=== PATIENT | female | born 1945 | race Caucasian/White ===

== ENCOUNTER 2021-10-05 02:06 | Emergency (ER) | payer MEDICARE, OTHER, SELFPAY ==
[2021-10-05] VITALS (19 sets, daily range): BP systolic 118–190; BP diastolic 64–108; PULSE 68–87; RESP 12–21; TEMP 36.2; O2SAT 93–100; BMI 33.1
--- NOTE | 2021-10-05 02:37 | ED.GENADULT ---
HPI - General Adult General Date Seen: 10/05/21 Chief complaint: Abdominal Pain Stated complaint: Abdominal pain Time Seen by Provider: 10/05/21 02:20 Source: patient History of Present Illness HPI narrative: Patient is a 75-year-old woman who says that she went to bed around 11:00 a.m., was trying to fall asleep when she developed sudden onset of sharp constant right lower abdominal pain with radiation to the right flank. She describes this as severe, associated with nausea and ?belching acid?, but no vomiting. She does describe a history of a large gastric ulcer number of years ago in [place], but has not had any epigastric pain. She denies any current black or bloody stools. Of note, she is Mandaen, bled down to hemoglobin of 5 with that past GI bleed and was given iron infusions for recovery. Has not had diarrhea. Has not had fevers or chills, no other urinary symptoms. Remote history of kidney stones. Status post cholecystectomy and appendectomy. Did not try any medications at home. No chest pain or difficulty breathing. Remote history of quadruple bypass. She does not smoke or drink. Her brought her in [facility]. Related Data Home Medications Medication Instructions Recorded Confirmed amlodipine 5 mg tablet mg 10/05/21 diazepam 2 mg tablet mg 10/05/21 dulaglutide 4.5 mg/0.5 mL mg subcut 10/05/21 subcutaneous pen injector (Trulicity) empagliflozin 25 mg tablet mg 10/05/21 (Jardiance) insulin glargine 100 unit/mL (3 unit subcut 10/05/21 mL) subcutaneous pen (Lantus Solostar U-100 Insulin) losartan 100 mg tablet mg 10/05/21 metoprolol succinate 25 mg mg PO 10/05/21 tablet,extended release 24 hr nitroglycerin 0.4 mg sublingual mg 10/05/21 tablet omeprazole 40 mg capsule,delayed mg 10/05/21 release rivaroxaban 15 mg tablet (Xarelto) mg 10/05/21 rosuvastatin 20 mg tablet mg 10/05/21 venlafaxine 150 mg mg PO 10/05/21 capsule,extended release 24 hr Allergies Allergy/AdvReac Type Severity Reaction Status Date / Time No Known Drug Allergies Allergy Verified 10/05/21 05:06 Review of Systems Status of ROS: Reports: 10 or more systems reviewed and unremarkable except as noted in History and below [facility] Social History Smoking Status: Never smoker Do you use any of these nicotine containing products: None Second hand tobacco smoke exposure: No How often do you have a drink containing alcohol: monthly or less How many standard drinks containing alcohol do you have on a typical day: 1 or 2 How often do you have six or more drinks on one occasion: Never AUDIT-C Alcohol total score: 1 Non-prescribed substance use: denies use Exam Narrative: Exam Narrative: Vital signs as noted above. In general, an alert, nontoxic elderly woman. She looks uncomfortable. Head: Normocephalic, atraumatic. Eyes: Pupils are equal reactive. Extraocular movements are full. Conjunctivae are normal. ENT: Mucous membranes are moist. Throat is normal. Neck: Supple without lymphadenopathy. Heart: Regular rate and rhythm. No murmur or rub. Lungs: Clear bilaterally. No increased work of breathing, crackles or wheezes. No CVA tenderness. Abdomen: Soft nondistended. Mild right sided tenderness without rebound guarding or rigidity. No significant epigastric tenderness. Extremities: Well perfused. Pulses intact. Neurologic: Patient is alert and oriented to person and place. Speech is fluent. Face is symmetric. Moves all extremities equally. Affect: Normal. Skin: Warm and dry. Well perfused. Const: Vital Signs, click to edit/add: Vital Signs - 24 hr 10/05/21 02:11 10/05/21 02:57 10/05/21 03:30 Temperature 97.1 F L Pulse Rate [Left P ulse Oximeter] 84 68 73 Respiratory Rate Blood Pressure [Le ft Forearm] Blood Pressure [Ri ght Forearm] Blood Pressure [Ri ght Upper Arm] 190/87 H 174/88 H Pulse Oximetry 96 98 95 Oxygen Delivery Me thod Room Air Room Air Room Air 10/05/21 03:58 10/05/21 02:10 10/05/21 04:38 Temperature Pulse Rate [Left P ulse Oximeter] 78 80 Respiratory Rate Blood Pressure [Le ft Forearm] Blood Pressure [Ri ght Forearm] Blood Pressure [Ri ght Upper Arm] 190/87 H Pulse Oximetry 97 94 Oxygen Delivery Me thod Room Air Room Air 10/05/21 04:41 10/05/21 05:15 10/05/21 06:30 Temperature Pulse Rate [Left P ulse Oximeter] 76 83 Respiratory Rate 16 18 Blood Pressure [Le ft Forearm] Blood Pressure [Ri ght Forearm] 143/85 H Blood Pressure [Ri ght Upper Arm] 139/64 Pulse Oximetry 93 99 Oxygen Delivery Me thod Room Air Nasal Cannula 10/05/21 06:10 10/05/21 05:30 10/05/21 05:10 Temperature Pulse Rate [Left P ulse Oximeter] Respiratory Rate Blood Pressure [Le ft Forearm] 149/89 H 163/75 H Blood Pressure [Ri ght Forearm] 171/108 H Blood Pressure [Ri ght Upper Arm] Pulse Oximetry 97 94 Oxygen Delivery Me thod Nasal Cannula Room Air 10/05/21 06:45 10/05/21 08:00 10/05/21 07:15 Temperature Pulse Rate [Left P ulse Oximeter] 76 83 80 Respiratory Rate 12 16 18 Blood Pressure [Le ft Forearm] Blood Pressure [Ri ght Forearm] 150/92 H 149/94 H 156/87 H Blood Pressure [Ri ght Upper Arm] Pulse Oximetry 98 98 99 Oxygen Delivery Me thod Room Air Nasal Cannula Nasal Cannula 10/05/21 07:30 10/05/21 07:45 Temperature Pulse Rate [Left P ulse Oximeter] 87 87 Respiratory Rate 17 18 Blood Pressure [Le ft Forearm] Blood Pressure [Ri ght Forearm] 149/80 H 152/85 H Blood Pressure [Ri ght Upper Arm] Pulse Oximetry 97 100 Oxygen Delivery Me thod Nasal Cannula Nasal Cannula Course Course Hospital Course: We will place an IV here, give her some morphine and Zofran given her history of GI bleeding. I am ordering some labs to start, going to hold off on CT scanning to decide whether not to give her contrast. She does say that she has a history of some renal insufficiency and that may limit her use of contrast regardless. Diagnostic considerations include kidney stone, pyelonephritis, aortic dissection, pancreatitis, colitis, diverticulitis, bowel obstruction, mesenteric ischemia, CO. Labs were overall normal. White blood cell count was 7.3, lactate near normal at 2. Hemoglobin was 13, platelets [id number]. Metabolic panel was normal, aside from a blood sugar of 243, and creatinine was 0.8. LFTs notable only for an ALT of 40. Troponin was 0.03. UA was notable for 3+ glucose, trace intact blood but 0-2 red cells and 0-2 white cells. Given unremarkable blood work, I elected to do a noncontrast CT scan, thinking that perhaps this was related to kidney stone. Urinalysis was not available at that time. She went on to have a CT scan which by my review did not show hydronephrosis or ureteral stone. She did have abnormalities in the right upper quadrant of indeterminate nature. This was read by Radiology as showing hemorrhage which they felt was likely coming from the right adrenal gland. I reviewed this with our general surgeon. I did give the patient Transexemic Acid, which was in keeping with her Mandaen beliefs. I did talk with her about reversal of the Xarelto, which would involve using something like Kcentra, which is what we have available here. This involves factor replacement, which is more complicated. She is reviewing that with other denominational leaders. I do not yet have approval for that from her. Per our surgeons recommendation, I did repeat the CT scan with contrast. This is read by Radiology as showing active hemorrhage, felt to be coming from the adrenal artery, and he notes that the hemorrhage is larger, now at 10 cm. It is still contained within the retroperitoneal fat, but he notes significant enlargement of the hemorrhage. I have at this point made multiple calls to all [facility]. There are no available beds at [facility], [facility], [facility], and I have not received any call back from [facility] so I assume that they likewise do not have beds. At this time, patient is still hemodynamically stable, repeat hemoglobin is pending. I am however, very concerned with ongoing arterial bleeding, anticoagulation and my inability to provide really any kind of stabilization. I will continue to look for options. Significant delays in finding a place to send this patient. I had a pages out to several places including [facility] and [facility] in [place], I did not hear back from anyone in a timely manner. I had called [facility] back to ask if I could speak to a surgeon about getting her down there for Interventional Radiology even without bed availability, but there was misinterpretation about who I was trying to speak to, and I was connected with endocrinology by mistake. This delayed things further. In the meantime, I was able to talk to [facility] in [place], who said they have bed availability, but as of 8:00 a.m. I had not heard back from them to formally accept the patient. Ultimately I did hear back from [facility] at [phone] saying that they would accept the patient to their ER. She is transferred at 8:30 a.m. to [facility]. She has had additional Dilaudid and Zofran as well as a 2 L of normal saline. She did ultimately agree to Kcentra, so that was given to her. Repeat hemoglobin was 11.7. Blood pressure has come down significantly but is still normal at 118 systolic. She is not tachycardic, but that is difficult to gauge given that she is on metoprolol. Vital Signs Vital signs: Initial Vital Signs Blood Pressure 190/87 H 10/05/21 02:10 Blood Pressure Mean 121 10/05/21 02:10 Blood Pressure Position Sitting 10/05/21 02:10 Vital Signs Blood Pressure 190/87 H 10/05/21 02:10 Temperature 97.1 F L 10/05/21 02:11 Pulse Rate 83 10/05/21 08:00 Respiratory Rate 16 10/05/21 08:00 Blood Pressure 149/94 H 10/05/21 08:00 Pulse Oximetry 98 10/05/21 08:00 Oxygen Delivery Method 10/05/21 08:00 Medical Decision Making Lab Data Labs: Lab Results 10/05/21 10/05/21 10/05/21 Range/Units 02:40 02:40 02:40 WBC 7.35 (4.50-11.00) K/uL RBC 4.18 (4.00-5.20) m/uL Hgb 13.1 (12.0-16.0) gm/dL Hct 41.2 (33.0-51.0) % MCV 99 (80-100) fL MCH 31 (26-34) pg MCHC 32 (32-36) gm/dL RDW Coeff of Felix 13.1 (11.5-15.5) % Plt Count 217 (140-440) K/uL Neut % (Auto) 60.8 (42.0-72.0) % Lymph % (Auto) 30.3 (20-44) % [place] % (Auto) 7.3 (0.0-11.0) % Eos % (Auto) 1.1 (0.0-7.0) % Baso % (Auto) 0.1 (0.0-3.0) % Neut # (Auto) 4.46 (1.7-7.0) K/uL Lymph # (Auto) 2.23 (0.90-2.90) K/uL [place] # (Auto) 0.50 (0.00-0.90) K/UL Eos # (Auto) 0.08 (0.00-0.50) K/uL Baso # (Auto) 0.01 (0.00-0.30) K/uL Abs Immat Gran (auto) 0.03 (0.00-0.30) K/uL INR (0.91-1.10) APTT (23-33) Seconds Sodium 139 (135-149) mmol/L Potassium 4.0 (3.6-5.1) mmol/L Chloride 101 (96-114) mmol/L Carbon Dioxide 27 (20-32) mmol/L BUN 13 (7-30) mg/dL Creatinine 0.8 (0.5-1.5) mg/dL Estimated Creat Clear 37.26 Estimated GFR 76 ml/min Glucose 243 H (60-115) mg/dL Lactate 2.0 H (0.5-1.9) mmol/L Calcium 9.5 (8.4-10.6) mg/dL Total Bilirubin 1.0 (0.1-1.5) mg/dL Direct Bilirubin 0.2 (0.0-0.5) mg/dL AST 31 (12-35) U/L ALT 40 H (4-35) U/L Alkaline Phosphatase 74 (40-150) U/L Troponin I (0.01-0.04) ng/mL C-Reactive Protein < 0.5 L (0.5-1.0) mg/dL Total Protein 6.9 (6.0-8.3) g/dL Albumin 4.2 (3.3-5.0) g/dL Lipase 238 (23-300) U/L Urine Color (Yellow) Urine Appearance (Clear) Urine pH (5.0-8.5) Ur Specific [place] (1.000-1.030) Urine Protein (Negative) Urine Glucose (UA) (Negative) Urine Ketones (Negative) Urine Blood (Negative) Urine Nitrite (Negative) Urine Bilirubin (Negative) Urine Urobilinogen (0.2-1.0) Ur Leukocyte Esterase (Negative) Urine RBC (0-2) Urine WBC (0-5) Ur Squamous Epith Cells (None-Few) Urine Bacteria (None) SARS-CoV-2 (PCR) (Negative) 10/05/21 10/05/21 10/05/21 Range/Units 02:40 03:45 04:45 WBC (4.50-11.00) K/uL RBC (4.00-5.20) m/uL Hgb (12.0-16.0) gm/dL Hct (33.0-51.0) % MCV (80-100) fL MCH (26-34) pg MCHC (32-36) gm/dL RDW Coeff of Felix (11.5-15.5) % Plt Count (140-440) K/uL Neut % (Auto) (42.0-72.0) % Lymph % (Auto) (20-44) % [place] % (Auto) (0.0-11.0) % Eos % (Auto) (0.0-7.0) % Baso % (Auto) (0.0-3.0) % Neut # (Auto) (1.7-7.0) K/uL Lymph # (Auto) (0.90-2.90) K/uL [place] # (Auto) (0.00-0.90) K/UL Eos # (Auto) (0.00-0.50) K/uL Baso # (Auto) (0.00-0.30) K/uL Abs Immat Gran (auto) (0.00-0.30) K/uL INR 1.75 H (0.91-1.10) APTT 36 H (23-33) Seconds Sodium (135-149) mmol/L Potassium (3.6-5.1) mmol/L Chloride (96-114) mmol/L Carbon Dioxide (20-32) mmol/L BUN (7-30) mg/dL Creatinine (0.5-1.5) mg/dL Estimated Creat Clear Estimated GFR ml/min Glucose (60-115) mg/dL Lactate (0.5-1.9) mmol/L Calcium (8.4-10.6) mg/dL Total Bilirubin (0.1-1.5) mg/dL Direct Bilirubin (0.0-0.5) mg/dL AST (12-35) U/L ALT (4-35) U/L Alkaline Phosphatase (40-150) U/L Troponin I 0.03 (0.01-0.04) ng/mL C-Reactive Protein (0.5-1.0) mg/dL Total Protein (6.0-8.3) g/dL Albumin (3.3-5.0) g/dL Lipase (23-300) U/L Urine Color Yellow (Yellow) Urine Appearance Clear (Clear) Urine pH 6.5 (5.0-8.5) Ur Specific [place] 1.015 (1.000-1.030) Urine Protein 1+ A (Negative) Urine Glucose (UA) 3+ A (Negative) Urine Ketones Negative (Negative) Urine Blood Trace-intact A (Negative) Urine Nitrite Negative (Negative) Urine Bilirubin Negative (Negative) Urine Urobilinogen 0.2 (0.2-1.0) Ur Leukocyte Esterase Negative (Negative) Urine RBC 0-2 (0-2) Urine WBC 0-2 (0-5) Ur Squamous Epith Cells Few (None-Few) Urine Bacteria Few A (None) SARS-CoV-2 (PCR) (Negative) 10/05/21 10/05/21 Range/Units 05:10 06:15 WBC (4.50-11.00) K/uL RBC (4.00-5.20) m/uL Hgb 11.7 L (12.0-16.0) gm/dL Hct (33.0-51.0) % MCV (80-100) fL MCH (26-34) pg MCHC (32-36) gm/dL RDW Coeff of Felix (11.5-15.5) % Plt Count (140-440) K/uL Neut % (Auto) (42.0-72.0) % Lymph % (Auto) (20-44) % [place] % (Auto) (0.0-11.0) % Eos % (Auto) (0.0-7.0) % Baso % (Auto) (0.0-3.0) % Neut # (Auto) (1.7-7.0) K/uL Lymph # (Auto) (0.90-2.90) K/uL [place] # (Auto) (0.00-0.90) K/UL Eos # (Auto) (0.00-0.50) K/uL Baso # (Auto) (0.00-0.30) K/uL Abs Immat Gran (auto) (0.00-0.30) K/uL INR (0.91-1.10) APTT (23-33) Seconds Sodium (135-149) mmol/L Potassium (3.6-5.1) mmol/L Chloride (96-114) mmol/L Carbon Dioxide (20-32) mmol/L BUN (7-30) mg/dL Creatinine (0.5-1.5) mg/dL Estimated Creat Clear Estimated GFR ml/min Glucose (60-115) mg/dL Lactate (0.5-1.9) mmol/L Calcium (8.4-10.6) mg/dL Total Bilirubin (0.1-1.5) mg/dL Direct Bilirubin (0.0-0.5) mg/dL AST (12-35) U/L ALT (4-35) U/L Alkaline Phosphatase (40-150) U/L Troponin I (0.01-0.04) ng/mL C-Reactive Protein (0.5-1.0) mg/dL Total Protein (6.0-8.3) g/dL Albumin (3.3-5.0) g/dL Lipase (23-300) U/L Urine Color (Yellow) Urine Appearance (Clear) Urine pH (5.0-8.5) Ur Specific [place] (1.000-1.030) Urine Protein (Negative) Urine Glucose (UA) (Negative) Urine Ketones (Negative) Urine Blood (Negative) Urine Nitrite (Negative) Urine Bilirubin (Negative) Urine Urobilinogen (0.2-1.0) Ur Leukocyte Esterase (Negative) Urine RBC (0-2) Urine WBC (0-5) Ur Squamous Epith Cells (None-Few) Urine Bacteria (None) SARS-CoV-2 (PCR) Negative SARS-CoV-2 (Negative) Discharge Plan Discharge Prescriptions: No Action venlafaxine 150 mg capsule,extended release 24hr PO amlodipine 5 mg tablet omeprazole 40 mg capsule,delayed release(DR/EC) diazepam 2 mg tablet Label Comments: TAKE 1 TABLET [address] FOR 1 DOSE nitroglycerin 0.4 mg tablet, sublingual Label Comments: PLACE 1 TABLET UNDER TONGUE EVERY 5 MINUTES NEEDED FOR CHEST PAIN metoprolol succinate 25 mg tablet extended release 24 hr PO losartan 100 mg tablet rosuvastatin 20 mg tablet insulin glargine [Lantus Solostar U-100 Insulin] 100 unit/mL (3 mL) insulin pen SUBCUT Label Comments: ADMINISTER 26 UNITS UNDER THE SKIN DAILY IN THE MORNING Xarelto 15 mg tablet Jardiance 25 mg tablet Trulicity 4.5 mg/0.5 mL pen injector SUBCUT
[2021-10-05 02:53] LABS: Basophils Absolute Auto 0.01 K/uL (0.00-0.30); Basophils Percent Auto 0.1 % (0.0-3.0); Eosinophils Absolute Auto 0.08 K/uL (0.00-0.50); Eosinophils Percent Auto 1.1 % (0.0-7.0); Hematocrit 41.2 % (33.0-51.0); Hemoglobin* 13.1 gm/dL (12.0-16.0); Immature Granulocytes Abs Auto 0.03 K/uL (0.00-0.30); Lymphocytes Absolute Auto 2.23 K/uL (0.90-2.90); Lymphocytes Percent Auto 30.3 % (20-44); Mean Corpuscular HGB Conc 32 gm/dL (32-36); Mean Corpuscular Hemoglobin 31 pg (26-34); Mean Corpuscular Volume 99 fL (80-100); Monocytes Percent Auto 7.3 % (0.0-11.0); Neutrophils Absolute Auto 4.46 K/uL (1.7-7.0); Neutrophils Percent Auto 60.8 % (42.0-72.0); Platelet Count* 217 K/uL (140-440); RDW Coefficient of Variation % 13.1 % (11.5-15.5); Red Blood Count 4.18 m/uL (4.00-5.20); White Blood Count* 7.35 K/uL (4.50-11.00)
[2021-10-05] MEDS: MORPHINE 4 MG/ML INJ IVP ×2 (02:55→03:25)
[2021-10-05] MEDS: ONDANSETRON 2 MG/ML inj 4 MG IVP ×2 (02:55→06:28)
[2021-10-05] MEDS: 0.9 % SODIUM CHLORIDE 1000 ml 1,000 ML IV ×2 (02:55→08:41)
[2021-10-05 02:58] LABS: Slide Review Reflex No
[2021-10-05 03:06] LABS: Chloride* 101 mmol/L (96-114)
[2021-10-05 03:07] LABS: Albumin* 4.2 g/dL (3.3-5.0); Sodium* 139 mmol/L (135-149)
[2021-10-05 03:09] LABS: Creatinine* 0.8 mg/dL (0.5-1.5); Est. Creatinine Clearance* 37.26; Estimated Glomerular Filt Rate 76 ml/min
[2021-10-05 03:10] LABS: Alkaline Phosphatase* 74 U/L (40-150); Aspartate Amino Transferase* 31 U/L (12-35); Bilirubin Direct* 0.2 mg/dL (0.0-0.5); Blood Urea Nitrogen* 13 mg/dL (7-30); Carbon Dioxide* 27 mmol/L (20-32); Lipase* 238 U/L (23-300); Total Protein* 6.9 g/dL (6.0-8.3)
[2021-10-05 03:11] LABS: Alanine Aminotransferase* 40 U/L (4-35); Calcium* 9.5 mg/dL (8.4-10.6); Glucose* 243 mg/dL (60-115)
[2021-10-05 03:14] LABS: C Reactive Protein* < 0.5 mg/dL (0.5-1.0)
--- NOTE | 2021-10-05 03:15 | CRLHL7_ITS ---
For Patients: As a result of the Century Cures Act, medical imaging exams and procedure reports are released immediately into your electronic medical record. You may view this report before your referring provider. If you have questions, please contact your health care provider. Indication: Flank pain Technique: Noncontrast CT abdomen and pelvis Comparison: CT abdomen and pelvis dated 03/12/2019 Findings: Heart is mildly prominent. There is no pericardial effusion. There is atelectasis. Unenhanced liver pancreas unremarkable. Gastric bypass changes. Small left adrenal nodule is unchanged probably reflects a small adenoma. There small to moderate amount hemorrhage in the right upper quadrant appears be centered around the right adrenal gland. Cholecystectomy. Hysterectomy urinary bladder unremarkable. Small fat containing right hernia no suspicious bony lesions. Impression: 1. Small to moderate hemorrhage in the right upper quadrant that appears to center of the right adrenal gland. 2. Small nonobstructing right renal calculus. No hydronephrosis Please note that all CT scans at this facility use dose modulation, iterative reconstruction, and/or weight-based dosing when appropriate to reduce radiation dose to as low as reasonably achievable. Dictated by Becca Richards MD @ 10/05/2021 4:24:45 AM (Electronically Signed)
[2021-10-05 03:22] LABS: Troponin I* 0.03 ng/mL (0.01-0.04)
[2021-10-05 03:58] LABS: Appearance Urine Clear (Clear); Bilirubin Urine Negative (Negative); Blood Urine Trace-intact (Negative); Color Urine Yellow (Yellow); Glucose Urine 3+ (Negative); Ketones Urine Negative (Negative); Leukocyte Esterase Urine Negative (Negative); Nitrite Urine Negative (Negative); Protein Urine 1+ (Negative); Specific Gravity Urine 1.015 (1.000-1.030); Urobilinogen Urine 0.2 (0.2-1.0); pH Urine 6.5 (5.0-8.5)
[2021-10-05 04:08] LABS: Bacteria Urine Few; RBC Urine 0-2 (0-2); Squamous Epithelial Cell Urine Few (None-Few); WBC Urine 0-2 (0-5)
[2021-10-05] MEDS: HYDROmorphone 0.5 mg/0.5 ml inj IVP ×2 (04:21→08:35)
--- NOTE | 2021-10-05 04:44 | CRLHL7_ITS ---
For Patients: As a result of the 21st Century Cures Act, medical imaging exams and procedure reports are released immediately into your electronic medical record. You may view this report before your referring provider. If you have questions, please contact your health care provider. INDICATION: Evaluate possible adrenal hemorrhage. Patient on Xarelto. History of hysterectomy, gastric bypass, appendectomy, and cholecystectomy. COMPARISON: Noncontrast CT of the abdomen and pelvis from earlier today at 0352 hours. TECHNIQUE: CT examination of the abdomen and pelvis was performed with the uneventful intravenous administration of 89 cc of Isovue 370 while 3 mm thick axial sections were obtained from the lung bases through the pubic symphysis. Oral contrast was not administered. Please note that all CT scans at this facility use dose modulation, iterative reconstruction, and/or weight-based dosing when appropriate to reduce radiation dose to as low as reasonably achievable. FINDINGS: In the abdomen, the liver, spleen, pancreas, and left adrenal are normal in appearance. There is active extravasation of injected intravenous contrast into the irregular hematoma located in the right upper quadrant around the adrenal gland. The hematoma has distinctly increased in size, with a new well-defined hematoma extending inferiorly from the adrenal fossa anterior to the right kidney measuring 9.0 x 5.4 x 9.7 centimeters. There is no sign of free blood in the peritoneal cavity Several cysts are seen in the kidneys, larger and more numerous on the left than the right. The kidneys are otherwise normal in appearance. Clips are again seen in the gall bladder fossa from cholecystectomy. There is no sign of biliary ductal dilatation. The abdominal aorta is normal in caliber with no sign of dilatation. There is no sign of retroperitoneal mass or adenopathy. Again are several lines of surgical carlos in the gastric fundus consistent with gastric bypass surgery. A small bowl anastamosis is again seen in the left upper quadrant with no sign of stricture. The distal stomach, the rest of the loops of small bowel, and colon in the abdomen are normal in appearance. The cecum is located in the anterior upper abdomen. Surgical clips are seen in the area the appendix from appendectomy. The loops of small bowel, colon, and rectum in the pelvis are normal in appearance. The uterus is again seen to be absent and the adnexal regions are normal in appearance. The urinary bladder is normal in appearance. There is no sign of pelvic or inguinal mass or adenopathy. There is no sign of free air or free fluid in the abdomen or pelvis. The lung bases are clear. There is a stable moderate L1 compression fracture with stable fusion of L1 and L2 and anatomic alignment. I discussed the findings with Dr. Allen at 0545 hours on 10/05/2021 IMPRESSION: CT of the abdomen shows a prominent increase in size of the right superior retroperitoneal hematoma located adjacent to the right adrenal gland. Active extravasation of injected intravenous contrast indicates active, high rate hemorrhage. New well-defined hematoma located between the right lobe of the liver and the right kidney measuring 9.0 x 5.4 x 9.7 centimeters. No sign of any free fluid in the abdomen or pelvis to suggest hemoperitoneum. Status post cholecystectomy and gastric bypass surgery. CT of the pelvis shows stable changes of hysterectomy. Please note that all CT scans at this facility use dose modulation, iterative reconstruction, and/or weight-based dosing when appropriate to reduce radiation dose to as low as reasonably achievable. Dictated by Cirilo Madison MD @ 10/05/2021 5:51:42 AM (Electronically Signed)
[2021-10-05 05:03] LABS: INR 1.75 (0.91-1.10); Prothrombin Time 20.9 Seconds
[2021-10-05 05:05] LABS: Partial Thromboplastin Time* 36 Seconds (23-33)
[2021-10-05] MEDS: TRANEXAMIC ACID 100 MG/ML INJ 1000 MG IV (05:05)
--- NOTE | 2021-10-05 05:22 | ED.NURSE ---
dr butler in room and explaining the use of a reversal of the xarelto. is jehovah witness. does not want anything with any blood products. I can't have any blood products. is here and is thinking that they can take derivatives from the blood, which is what it is.
[2021-10-05 06:13] LABS: SARS PCR* Negative SARS-CoV-2 (Negative)
[2021-10-05 06:20] LABS: Hemoglobin* 11.7 gm/dL (12.0-16.0)
--- NOTE | 2021-10-05 07:25 | ED.NURSE ---
will take kcentra. dr butler was informed. co of her back hurting more. color is pale.
--- NOTE | 2021-10-05 08:01 | P.EN_ITS ---
Chart Event Note Chart Event Note: Called about this patient with retroperitoneal hemorrhage. She takes Xarelto 20 mg per day. She developed acute onset of flank pain. She came into the emergency department where she was found to be hemodynamically stable and a CT scan showed retroperitoneal hemorrhage, question adrenal source. I was called by the emergency department for help with workup/management. I recommended tranexamic acid and factor concentrate if the patient would accept (she is a congregational), any repeat blood draws in pediatric tubes, 2 large-bore IVs in saline solution for resuscitation. I also recommended repeat CT scan with IV contrast. Unfortunately this showed active extravasation from the adrenal ar barby with worsening retroperitoneal hematoma. I recommended transfer to a tertiary care facility for Interventional Radiology, particularly since we are unable to resuscitate the patient with blood products here. Fortunately [facility] did except the patient and she transferred this morning. The patient also agreed to receive Kcentra and this was transfused prior to discharge. Fortunately the patient's vital signs remained stable though her hemoglobin did drift 2 g over the time she was here. The patient was accepted for transfer prior to me seeing her.
--- NOTE | 2021-10-05 08:55 | ED.NURSE ---
report was called to crystal swanson at [facility].
== END 2021-10-05 08:50 | disposition home or self-care (01) ==
PROVIDERS: Emergency Provider Emergency Medicine
DX: R10.31 Right lower quadrant pain (principal); E27.8 Other specified disorders of adrenal gland
CPT/HCPCS: 36415; 74176; 74177; 80048; 80076; 81001; 83605; 83690; 84484; 85018; 85025; 85610; 85730; 86140; 87086; 87635; 93005; 96374; 96375; 99285; J1170; J2270; J2405; J7030; J7168; Q9967

== ENCOUNTER 2021-10-05 08:40 | Outpatient (CLI) | payer MEDICARE, OTHER, SELFPAY | END 2021-10-05 08:41 | disposition home or self-care (01) | LOC: AMB 10-09 14:30 | PROVIDERS: Visit Provider Emergency Medicine | DX: E27.49 Other adrenocortical insufficiency (principal); N28.89 Other specified disorders of kidney and ureter | CPT/HCPCS: A0425; A0427 ==

== ENCOUNTER 2022-08-15 12:48 | Observation (INO) | payer MEDICARE, OTHER, SELFPAY ==
[2022-08-15] VITALS (23 sets, daily range): BP systolic 126–168; BP diastolic 68–95; PULSE 64–79; RESP 15–19; TEMP 36.3–36.5; O2SAT 93–99; BMI 35.3; BMI 35.0
--- NOTE | 2022-08-15 13:26 | CRLHL7_ITS ---
For Patients: As a result of the Century Cures Act, medical imaging exams and procedure reports are released immediately into your electronic medical record. You may view this report before your referring provider. If you have questions, please contact your health care provider. INDICATION: Bleed. Status post polypectomy knees. Resumed liquids. History of a gastric bypass, appendectomy cholecystectomy and hysterectomy. TECHNIQUE: Multiple axial images were obtained from the diaphragm to the symphysis pubis after administration of 92 mL of nonionic contrast intravenously. Sagittal and coronal re-formatted images were obtained. COMPARISON: 10/06/1999 10/05/2021 and 03/12/2019. Findings: The visualized portion of the lung bases are clear. There is a stable tiny cyst in the right lobe of the liver laterally. There is no new liver lesions seen. The spleen and adrenal glands are unremarkable. The gallbladder is surgically absent. There is a stable nodules in left adrenal gland when compared back to 2019 consistent with adenomas. The right adrenal gland is unremarkable. There are bilateral kidney cysts. There is no hydronephrosis. There is no evidence of a bowel obstruction. There are postoperative changes consistent with a gastric bypass. By report the appendix is surgically absent. There are few diverticula in the colon. There is no evidence of a diverticulitis. The abdominal aorta is normal in caliber. There are atherosclerotic calcifications. There is no adenopathy. There is no free fluid in the abdomen or pelvis. The uterus is surgically absent. There are degenerative changes in the spine. IMPRESSION: 1. No acute abnormality 9 CT scan abdomen and pelvis with contrast. 2. Status post cholecystectomy, appendectomy and hysterectomy. Status post gastric bypass surgery. 3. Bilateral kidney cysts. 4. Stable left adrenal gland adenoma. Please note that all CT scans at this facility use dose modulation, iterative reconstruction, and/or weight-based dosing when appropriate to reduce radiation dose to as low as reasonably achievable. Dictated by Óscar Leal MD @ 08/15/2022 2:46:58 PM (Electronically Signed)
--- NOTE | 2022-08-15 13:29 | ED_ITS ---
HPI - GI Bleed General Chief complaint: GI Bleed Stated complaint: Post colonoscopy bleeding Time Seen by Provider: 08/15/22 13:07 History of Present Illness HPI Narrative: This 76-year-old female comes in reporting bright red blood per rectum. She had a colonoscopy several days ago and discontinued Eliquis for this procedure. This was done in [place]. She sees her primary doctor in [place] and doctors typically in the [facility] system. She presents here today because of blood in the toilet. She states that she is not having any pain but does feel a bit bloated. She had a colonoscopy about 5 days ago and states that she had normal bowel movements afterwards. She resumed Eliquis 2 days ago and now has bright red blood in the toilet. She has a history of adrenal hemorrhage that was seen here about a year ago and transferred elsewhere for further treatment. 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 Related Data Home Medications Medication Instructions Recorded Confirmed amlodipine 5 mg tablet mg 10/05/21 diazepam 2 mg tablet mg 10/05/21 dulaglutide 4.5 mg/0.5 mL mg subcut 10/05/21 subcutaneous pen injector (Trulicity) empagliflozin 25 mg tablet mg 10/05/21 (Jardiance) insulin glargine 100 unit/mL (3 unit subcut 10/05/21 mL) subcutaneous pen (Lantus Solostar U-100 Insulin) losartan 100 mg tablet mg 10/05/21 metoprolol succinate 25 mg mg PO 10/05/21 tablet,extended release 24 hr nitroglycerin 0.4 mg sublingual mg 10/05/21 tablet rosuvastatin 20 mg tablet mg 10/05/21 venlafaxine 150 mg mg PO 10/05/21 capsule,extended release 24 hr apixaban 5 mg tablet (Eliquis) 5 mg PO BID 08/15/22 08/15/22 Allergies Allergy/AdvReac Type Severity Reaction Status Date / Time acetaminophen [From Vicodin] Allergy Rash Verified 08/15/22 13:01 hydrocodone [From Vicodin] Allergy Rash Verified 08/15/22 13:01 gabapentin AdvReac disoriented Verified 08/15/22 13:01 adhesives Allergy red Uncoded 08/15/22 13:01 swelling Review of Systems Status of ROS: Reports: 10 or more systems reviewed and unremarkable except as noted in History and below Narrative: Constitutional: No fevers, no weight gain or loss. Eyes: No discharge. No vision changes. HENT: No congestion, no sore throat, no ear pain. Cardiovascular: No chest pain, no palpitations. Respiratory: No shortness of breath, no wheezes, no cough. Gastrointestinal: No abdominal pain, no vomiting, no diarrhea. Bright red blood and some clots per rectum. Genitourinary: No dysuria, no hematuria. Musculoskeletal: Normal range of motion. Skin: No rashes, no pruritis. Neurological: No dizziness, weakness, sensory change, speech change. Endo/Heme/Allergies: No bruising or bleeding. No polydipsia. Pysch: no suicidality, no anxiety, no insomnia. All other systems reviewed and are negative. [facility] Social History Smoking Status: Never smoker Do you use any of these nicotine containing products: None Second hand tobacco smoke exposure: No How often do you have a drink containing alcohol: monthly or less How many standard drinks containing alcohol do you have on a typical day: 1 or 2 How often do you have six or more drinks on one occasion: Never AUDIT-C Alcohol total score: 1 Non-prescribed substance use: denies use Exam Narrative: Exam Narrative: Constitutional: Well-developed, well-nourished, no acute distress. HEENT: Normocephalic, atraumatic. Neck: Normal range of motion. Nontender. Supple. Heart: Regular. No murmurs. Normal rate. Intact distal pulses. Lungs: Clear to auscultation. No chest discomfort. No wheezes, rhonchi, or rales. Abdomen: Normal bowel sounds. Nontender. No rebound tenderness. Genitalia: Deferred. Back: No midline tenderness. Normal range of motion. Extremities: Normal range of motion. No injury. Skin: Intact. No rash. Warm. No erythema or pallor. Neurologic: No altered sensation. No weakness. Alert and oriented. Psychiatric: No suicidality. No anxiety or depression. No insomnia. Nursing notes and vitals signs are reviewed. Const: Vital Signs, click to edit/add: Vital Signs - 24 hr 08/15/22 12:55 08/15/22 13:57 08/15/22 14:00 Temperature 97.6 F Pulse Rate 76 77 Pulse Rate [Left P ulse Oximeter] 79 Respiratory Rate 19 Blood Pressure Blood Pressure [Ri ght Upper Arm] 143/75 H Pulse Oximetry 96 96 95 Oxygen Delivery Me thod Room Air 08/15/22 14:02 08/15/22 14:15 Temperature Pulse Rate 74 76 Pulse Rate [Left P ulse Oximeter] Respiratory Rate 16 Blood Pressure 141/72 H Blood Pressure [Ri ght Upper Arm] Pulse Oximetry 97 96 Oxygen Delivery Me thod Room Air Course Vital Signs Vital signs: Initial Vital Signs Temperature 97.6 F 08/15/22 12:55 Temperature Source Temporal Artery Scan 08/15/22 12:55 Pulse Rate 79 08/15/22 12:55 Respiratory Rate 19 08/15/22 12:55 Blood Pressure 143/75 H 08/15/22 12:55 Blood Pressure Mean 97 08/15/22 12:55 Blood Pressure Position Sitting 08/15/22 12:55 Pulse Oximetry 96 08/15/22 12:55 Oxygen Delivery Method Room Air 08/15/22 12:55 Vital Signs Temperature 97.6 F 08/15/22 12:55 Pulse Rate 79 08/15/22 12:55 Respiratory Rate 19 08/15/22 12:55 Blood Pressure 143/75 H 08/15/22 12:55 Pulse Oximetry 96 08/15/22 12:55 Oxygen Delivery Method Room Air 08/15/22 12:55 Temperature 97.6 F 08/15/22 12:55 Pulse Rate 76 08/15/22 14:15 Respiratory Rate 16 08/15/22 14:02 Blood Pressure 141/72 H 08/15/22 14:02 Pulse Oximetry 96 08/15/22 14:15 Oxygen Delivery Method Room Air 08/15/22 14:02 MDM - GI Bleed MDM Narrative Medical decision making narrative: This 76-year-old female has a GI bleed status post colonoscopy with polypectomies. She had normal bowel movements for a few days after this procedure but then resumed her Eliquis and today has bleeding in the toilet. She states she feels a sense of fullness in her abdomen but otherwise has no other symptoms. An IV was established and lab results returned with reassuring hemoglobin at around 13. I did order CT scan of the abdomen and pelvis with contrast and this returns also with reassuring findings. She did have a prior history a year ago of an adrenal hemorrhage that was complicated with her Mandaen beliefs that would refuse any blood transfusion. This patient did receive 1000 mg of tranexamic acid intravenously. I consulted with the hospitalist international marketing executive, Dr. Prieto, who agrees to observe her overnight for any sign of ongoing bleeding. The patient will discontinue the Eliquis for now. Lab Data Labs: Lab Results 08/15/22 08/15/22 Range/Units 13:15 13:24 WBC 5.31 (4.50-11.00) K/uL RBC 4.45 (4.00-5.20) m/uL Hgb 13.9 (12.0-16.0) gm/dL Hct 43.2 (33.0-51.0) % MCV 97 (80-100) fL MCH 31 (26-34) pg MCHC 32 (32-36) gm/dL RDW Coeff of Felix 13.1 (11.5-15.5) % Plt Count 219 (140-440) K/uL Neut % (Auto) 62.1 (42.0-72.0) % Lymph % (Auto) 27.3 (20-44) % [place] % (Auto) 7.3 (0.0-11.0) % Eos % (Auto) 2.3 (0.0-7.0) % Baso % (Auto) 0.6 (0.0-3.0) % Neut # (Auto) 3.30 (1.7-7.0) K/uL Lymph # (Auto) 1.45 (0.90-2.90) K/uL [place] # (Auto) 0.40 (0.00-0.90) K/UL Eos # (Auto) 0.12 (0.00-0.50) K/uL Baso # (Auto) 0.03 (0.00-0.30) K/uL INR 1.22 H (0.91-1.10) Sodium 139 (135-149) mmol/L Potassium 3.9 (3.6-5.1) mmol/L Chloride 107 (96-114) mmol/L Carbon Dioxide 19 L (20-32) mmol/L BUN 13 (7-30) mg/dL Creatinine 0.8 (0.5-1.5) mg/dL Estimated Creat Clear 34.99 Estimated GFR 75 ml/min Glucose 239 H (60-115) mg/dL Lactate 1.9 (0.5-1.9) mmol/L Calcium 9.6 (8.4-10.6) mg/dL Blood Type A Positive Antibody Screen NEGATIVE Imaging Data CT scan - abdomen: Radiologist's impression: 1. No acute abnormality 9 CT scan abdomen and pelvis with contrast. 2. Status post cholecystectomy, appendectomy and hysterectomy. Status post gastric bypass surgery. 3. Bilateral kidney cysts. 4. Stable left adrenal gland adenoma. Discharge Plan Discharge Clinical Impression: Lower gastrointestinal hemorrhage Patient Disposition: Admitted As Inpatient Condition: Unchanged Prescriptions: No Action venlafaxine 150 mg capsule,extended release 24hr PO amlodipine 5 mg tablet diazepam 2 mg tablet Patient Comments: TAKE 1 TABLET [address] FOR 1 DOSE nitroglycerin 0.4 mg tablet, sublingual Patient Comments: PLACE 1 TABLET UNDER TONGUE EVERY 5 MINUTES NEEDED FOR CHEST PAIN metoprolol succinate 25 mg tablet extended release 24 hr PO losartan 100 mg tablet rosuvastatin 20 mg tablet insulin glargine [Lantus Solostar U-100 Insulin] 100 unit/mL (3 mL) insulin pen SUBCUT Patient Comments: ADMINISTER 26 UNITS UNDER THE SKIN DAILY IN THE MORNING Jardiance 25 mg tablet Trulicity 4.5 mg/0.5 mL pen injector SUBCUT Eliquis 5 mg tablet 5 mg PO BID Follow Up/Referrals: Provider,Not a Local [Referring] -
[2022-08-15 13:34] LABS: Lactate* 1.9 mmol/L (0.5-1.9)
[2022-08-15 13:38] LABS: Basophils Absolute Auto 0.03 K/uL (0.00-0.30); Basophils Percent Auto 0.6 % (0.0-3.0); Eosinophils Absolute Auto 0.12 K/uL (0.00-0.50); Eosinophils Percent Auto 2.3 % (0.0-7.0); Hematocrit 43.2 % (33.0-51.0); Hemoglobin* 13.9 gm/dL (12.0-16.0); Immature Granulocytes Abs Auto 0.02 K/uL (0.00-0.30); Immature Granulocytes Pct Auto 0.4 %; Lymphocytes Absolute Auto 1.45 K/uL (0.90-2.90); Lymphocytes Percent Auto 27.3 % (20-44); Mean Corpuscular HGB Conc 32 gm/dL (32-36); Mean Corpuscular Hemoglobin 31 pg (26-34); Mean Corpuscular Volume 97 fL (80-100); Monocytes Percent Auto 7.3 % (0.0-11.0); Neutrophils Percent Auto 62.1 % (42.0-72.0); Platelet Count* 219 K/uL (140-440); RDW Coefficient of Variation % 13.1 % (11.5-15.5); Red Blood Count 4.45 m/uL (4.00-5.20); White Blood Count* 5.31 K/uL (4.50-11.00)
[2022-08-15] MEDS: TRANEXAMIC ACID 100 MG/ML INJ 1000 MG IV (13:40)
[2022-08-15 13:41] LABS: Slide Review Reflex No
[2022-08-15 14:01] LABS: Chloride* 107 mmol/L (96-114); Potassium* 3.9 mmol/L (3.6-5.1); Sodium* 139 mmol/L (135-149)
[2022-08-15 14:03] LABS: INR 1.22 (0.91-1.10); Prothrombin Time 16.1 Seconds
[2022-08-15 14:04] LABS: Blood Urea Nitrogen* 13 mg/dL (7-30); Carbon Dioxide* 19 mmol/L (20-32); Creatinine* 0.8 mg/dL (0.5-1.5); Est. Creatinine Clearance* 34.99; Estimated Glomerular Filt Rate 75 ml/min
[2022-08-15 14:05] LABS: Calcium* 9.6 mg/dL (8.4-10.6); Glucose* 239 mg/dL (60-115)
--- NOTE | 2022-08-15 14:19 | ED.NURSE ---
Pt complains of chronic back pain, did not take own pain medications at home this morning, states has run out of percocet and oxycodone. Dr. Gallardo updated. Pt provided recliner chair rather than ER cot, also provided extra pillows and ice pack for back.
[2022-08-15] MEDS: OXYCODONE 5 MG TABLET PO ×2 (15:23→19:02)
--- NOTE | 2022-08-15 15:33 | P.IMHP_ITS ---
Hospitalist- H&P: HPI History of Present Illness Date Seen: 08/15/22 Chief complaint: Post colonoscopy bleeding Narrative: Marah Zepeda is a 76 year old female with past medical history of CKD3, Type II DM, PAF, CAD, back pain, depression presenting for evaluation of bloody stool. She is a Yarsanism. She underwent colonoscopy last week and had polypectomy. Her eliquis was held two days before and two days after procedure. She resumed eliquis subsequently today noted bloody bowel movement (red). She endorses chronic back pain. Denies hematemesis, chest pain, sob, nausea, vomiting. She presented to ED where hemoglobin was 13.7. She was subsequently admitted for serial hgb monitoring and observation. She lives with her in [place]. Negative alcohol history. CT AP 1. No acute abnormality 9 CT scan abdomen and pelvis with contrast. 2. Status post cholecystectomy, appendectomy and hysterectomy. Status post gastric bypass surgery. 3. Bilateral kidney cysts. 4. Stable left adrenal gland adenoma. Medical History 14 items 07/16/2018 Reflux esophagitis 04/12/2006 HYPERLIPIDEMIA 04/12/2006 ARTERIOSCLEROTIC HEART DISEASE 04/12/2006 DIABETES MELLITUS TYPE II 10/2002 Other complications due to other cardiac device, implant, and graft 09/2002 Postsurgical aortocoronary bypass status Date Unknown Atypical depressive disorder Date Unknown DEPRESSION Date Unknown HYPERTENSION Date Unknown Iron deficiency anemia, unspecified Date Unknown MORBID OBESITY Date Unknown Obesity, unspecified Date Unknown Patient is Yarsanism Date Unknown Pure hypercholesterolemia Surgical History 18 items 08/09/2022 Colonoscopy diagnostic 2020 Thyroidectomy 2020 Parathyroidectomy 07/16/2018 Esophagogastroduodenoscopy 07/2016 Esophagogastroduodenoscopy (N/A) 02/23/2015 Esophagogastroduodenoscopy 09/24/2009 LEFT KNEE ARTHROSCOPY with medial meniscectomy with plica excision [Other] 10/2005 Hysterectomy 12/2003 Hernia repair 09/2002 Cabg Date Unknown (ia) pr removal gallbladder Date Unknown Appendectomy Date Unknown Bladder suspension Date Unknown Cholecystectomy Date Unknown Diet bariatric 12/13 and 05/16 Gastric bypass Date Unknown HXcarpel tunnel [Other] Date Unknown Total knee arthroplasty (Bilateral) Tobacco History 8 items Smoking Status Former Started 02/13/1968 - 02/12/1969 Quit Types Cigarettes from 02/13/1968 to 02/12/1969 Amount Average: 0.5 packs/day for 1 year; Pack years: 0.5 Pack Year History 0 packs/day, Started 02/12/1969; .5 packs/day, 02/13/1968 - 02/12/1969 (1.0 years) Passive Exposure Past Smokeless Tobacco Status Never Comment smoked in the 1959's Vaping/E-Liquid Use Questions Responses Vaping/E-Liquid Use Never User Counseling Given? Yes Vaping/E-Liquid Substances Questions Responses Nicotine No CBD No Flavored No THC No Other No Unknown No Vaping/E-Liquid Devices Review of Systems Status of ROS: Reports: 10 or more systems reviewed and unremarkable except as noted in History and below PFSH PFS Social History What is your current living situation?: I presently have a place to live Problems where you live: no known problems Problems where you live details: NA In the past 12 months, utilities in danger of being shut off: no In the past 12 mos, have been you worried that your food would run out before you had money to buy more?: never true In the past 12 mos, the food you bought just didn't last and you didn't have money to buy more?: never true Highest level of school completed/degree received: some college, no degree Smoking Status: Never smoker Do you use any of these nicotine containing products: None Second hand tobacco smoke exposure: No How often do you have a drink containing alcohol: monthly or less Alcohol type: beer How many standard drinks containing alcohol do you have on a typical day: 1 or 2 How often do you have six or more drinks on one occasion: Never AUDIT-C Alcohol total score: 1 Non-prescribed substance use: denies use Caffeine: Yes How often does anyone, including family, friends and others, physically hurt you : never How often does anyone, including family, friends and others, insult or talk down to you: never How often does anyone, including family, friends and others, threaten you with harm: never How often does anyone, including family, friends and others, scream or curse at you: never service: No Meds Home Medications and Allergies Home Medications Medication Instructions Recorded Confirmed Type amlodipine 5 mg tablet mg 10/05/21 History empagliflozin 25 mg tablet 25 mg PO DAILY 10/05/21 08/15/22 History (Jardiance) insulin glargine 100 unit/mL (3 18 unit subcut DAILY 10/05/21 08/15/22 History mL) subcutaneous pen (Lantus Solostar U-100 Insulin) losartan 100 mg tablet 100 mg PO DAILY 10/05/21 08/15/22 History metoprolol succinate 25 mg 50 mg PO DAILY 10/05/21 08/15/22 History tablet,extended release 24 hr nitroglycerin 0.4 mg sublingual 0.4 mg sublingual Q5M PRN 10/05/21 08/15/22 History tablet rosuvastatin 20 mg tablet 20 mg PO HS 10/05/21 08/15/22 History venlafaxine 150 mg 150 mg PO DAILY 10/05/21 08/15/22 History capsule,extended release 24 hr apixaban 5 mg tablet (Eliquis) 5 mg PO BID 08/15/22 08/15/22 History Allergies Allergy/AdvReac Type Severity Reaction Status Date / Time hydrocodone [From Vicodin] Allergy Rash Verified 08/15/22 13:01 gabapentin AdvReac disoriented Verified 08/15/22 13:01 adhesives Allergy red Uncoded 08/15/22 13:01 swelling Exam Narrative: Exam Narrative: Gen: no acute distress HEENT: NCAT EOMI mmm Neck: Supple CV: RRR normal s1 s2 Lungs: CTAB Abd: Soft,nt, nd Neuro: Alert, oriented, CN grossly intact; nonfocal screening?exam Psych: appropriate affect MSK: age appropriate muscle mass Skin; Warm, dry no rash on face Const: Vital Signs, click to edit/add: Vital Signs - 24 hr 08/15/22 12:55 08/15/22 13:57 08/15/22 14:00 Temperature 97.6 F Pulse Rate 76 77 Pulse Rate [Left P ulse Oximeter] 79 Respiratory Rate 19 Blood Pressure Blood Pressure [Ri ght Upper Arm] 143/75 H Pulse Oximetry 96 96 95 Oxygen Delivery Me thod Room Air 08/15/22 14:02 08/15/22 14:15 Temperature Pulse Rate 74 76 Pulse Rate [Left P ulse Oximeter] Respiratory Rate 16 Blood Pressure 141/72 H Blood Pressure [Ri ght Upper Arm] Pulse Oximetry 97 96 Oxygen Delivery Me thod Room Air Hospitalist - H&P: Result Labs Labs: Short CBC 08/15/22 Range/Units 13:15 WBC 5.31 (4.50-11.00) K/uL Hgb 13.9 (12.0-16.0) gm/dL Hct 43.2 (33.0-51.0) % Plt Count 219 (140-440) K/uL BMP 08/15/22 13:15 Sodium 139 Potassium 3.9 Chloride 107 Carbon Dioxide 19 L BUN 13 Creatinine 0.8 Glucose 239 H Calcium 9.6 Assessment and Plan Assessment and plan (1) Lower gastrointestinal hemorrhage: Status: Acute Plan Marah Zepeda is a 76 year old female with past medical history of CKD3, Type II DM, PAF, CAD, back pain, depression presenting for evaluation of bloody stool. She is a Yarsanism. She underwent colonoscopy last week and had polypectomy. Her eliquis was held two days before and two days after procedure. She resumed eliquis subsequently today noted bloody bowel movement (red). She endorses chronic back pain. Denies hematemesis, chest pain, sob, nausea, vomiting. She presented to ED where hemoglobin was 13.7. She was subsequently admitted for serial hgb monitoring and observation. She lives with her in [place]. Negative alcohol history. 1. Post polypectomy lower GI bleed 2. Hx of PAF on eliquis 3. Hx of CKD3 4. Hx of Insulin Dependent Type II DM 5. Hx of Depression 6. Hx of CAD 7. Hx of chronic back pain 8. Yarsanism Plan -admit to observation -serial hgb -hold BB -hold lantus/SSI -hold antihypertensives -hold eliquis -hold SSRI -npo midnight -pain control -if stable serial hgb; likely dc home tomorrow with close PCP follow up Code-Full
[2022-08-15] MEDS: ACETAMINOPHEN 325 MG TABLET 650 MG PO (17:52)
[2022-08-15] MEDS: LACTATED RINGERS 1000 ML 1,000 ML 100 ML IV (17:53)
[2022-08-15 18:35] LABS: Hemoglobin* 13.7 gm/dL (12.0-16.0)
[2022-08-15] MEDS: HYDROmorphone 0.5 mg/0.5 ml inj IVP (20:06)
[2022-08-15] MEDS: SODIUM CHLORIDE 0.9 % (FLUSH) 10 ML SYRINGE 5 ML IVF (21:56)
--- NOTE | 2022-08-15 22:48 | PC.NURSE ---
Nursing Care Hours: [id number] Pt this shift calm and cooperative. Alert and oriented. [place] d/t [place] per pt. VSS. Steady gait in room. tele on, showing NSR with first degree block and prolonged QT. LR running, IV asymptomatic. BS active. No BM since being on the unit. Void x2 WNL. Tolerating clear liquids. C/o lumbar back pain d/t an inoperable cyst per pt. Pain 7-8/10, unrelieved by Tylenol and oxycodone alone, one dose Dilaudid given, pain decreased to 3/10 and pt resting comfortably in bed with 15 RR.
[2022-08-16 00:20] VITALS: PULSE 61
[2022-08-16 00:24] VITALS: BP 138/95; PULSE 67; RESP 18; TEMP 36.4; O2SAT 96
[2022-08-16 00:24] LABS: Hemoglobin* 14.1 gm/dL (12.0-16.0)
[2022-08-16] MEDS: OXYCODONE 5 MG TABLET PO ×4 (00:34→12:22)
[2022-08-16] MEDS: LACTATED RINGERS 1000 ML 1,000 ML 100 ML IV (02:40)
[2022-08-16 03:12] VITALS: BP 168/84; PULSE 63; RESP 18; TEMP 36.4; O2SAT 95
[2022-08-16] MEDS: ACETAMINOPHEN 325 MG TABLET 650 MG PO ×2 (04:51→10:57)
[2022-08-16] MEDS: diphenhydrAMINE 25 MG CAPSULE PO (05:11)
--- NOTE | 2022-08-16 05:19 | PC.NURSE ---
Pt pleasant and cooperative. A real talker. She has not had any stools since 1899August 15. Her hemoglobin at 0000 was 14,1. She has been up I to the bathroom and doing well with it. VSS BP slightly high. Pt co itching due to soap used for sheets. Benedryl order gotten and given. Also given oxycodone 5mg and tylenol for chronic back pain 09/21.
[2022-08-16 06:46] LABS: Hematocrit 38.3 % (33.0-51.0); Hemoglobin* 12.2 gm/dL (12.0-16.0); Mean Corpuscular HGB Conc 32 gm/dL (32-36); Mean Corpuscular Hemoglobin 31 pg (26-34); Mean Corpuscular Volume 98 fL (80-100); Platelet Count* 198 K/uL (140-440); Red Blood Count 3.93 m/uL (4.00-5.20)
[2022-08-16 06:49] LABS: Slide Review Reflex No
[2022-08-16 07:00] VITALS: BP 150/88; PULSE 61; PULSE 70; RESP 18; TEMP 36.4; O2SAT 97
[2022-08-16 07:05] LABS: Chloride* 104 mmol/L (96-114)
[2022-08-16 07:06] LABS: Potassium* 3.6 mmol/L (3.6-5.1); Sodium* 136 mmol/L (135-149)
[2022-08-16 07:08] LABS: Creatinine* 0.7 mg/dL (0.5-1.5); Est. Creatinine Clearance* 34.99; Estimated Glomerular Filt Rate 88 ml/min
[2022-08-16 07:09] LABS: Blood Urea Nitrogen* 10 mg/dL (7-30); Carbon Dioxide* 25 mmol/L (20-32); Glucose* 122 mg/dL (60-115)
--- NOTE | 2022-08-16 10:57 | PM.DS1 ---
DS: Providers Provider Date Seen: 08/16/22 Date of admission: 08/15/22 16:00 Primary care physician: Cherie Raza MD Admitting Clinician: Deonte Prieto MD Attending Physician on discharge: Deonte Prieto MD Date of Discharge: 08/16/22 DS: Diagnosis Discharge Diagnosis (1) Lower gastrointestinal hemorrhage: Status: Acute DS: Summary Hospital Course Hospital Course: Hospitalist- H&P: HPI History of Present Illness Date Seen: 08/15/22 Chief complaint: Post colonoscopy bleeding Narrative: Marah Zepeda is a 76 year old female with past medical history of CKD3, Type II DM, PAF, CAD, back pain, depression presenting for evaluation of bloody stool. She is a [employer]. She underwent colonoscopy last week and had polypectomy. Her eliquis was held two days before and two days after procedure. She resumed eliquis subsequently today noted bloody bowel movement (red). She endorses chronic back pain. Denies hematemesis, chest pain, sob, nausea, vomiting. She presented to ED where hemoglobin was 13.7. She was subsequently admitted for serial hgb monitoring and observation. She lives with her in [place]. Negative alcohol history. She was given Transexamic acid in the ED Hospital Course THe patient was admitted under observation status. Serial hgb monitoring was stable with no evidence of bleeding. Discharge hemoglobin was 13.2. She has repeat Hgb on Sunday. She has been instructed to hold eliquis until PCP follow up. I would like her to follow up with PCP in 3-5 days. The patient informed me her PCP called her would like her to hold eliquis for one week. CT AP IMPRESSION: 1. No acute abnormality 9 CT scan abdomen and pelvis with contrast. 2. Status post cholecystectomy, appendectomy and hysterectomy. Status post gastric bypass surgery. 3. Bilateral kidney cysts. 4. Stable left adrenal gland adenoma. Time Spent with Patient Time attestation: Total time spent providing and/or coordinating discharge services: Time spent: Greater than 30 minutes Exam Narrative: Exam Narrative: Gen: no acute distress HEENT: NCAT EOMI mmm Neck: Supple CV: RRR normal s1 s2 Lungs: CTAB Abd: Soft,nt, nd Neuro: Alert, oriented, CN grossly intact; nonfocal screening?exam Psych: appropriate affect MSK: age appropriate muscle mass Skin; Warm, dry no rash on face Const: Vital Signs, click to edit/add: Vital Signs - 24 hr 08/15/22 12:55 08/15/22 13:57 08/15/22 14:00 Temperature 97.6 F Pulse Rate 76 77 Pulse Rate [Left P ulse Oximeter] 79 Respiratory Rate 19 Blood Pressure Blood Pressure [Le ft Arm] Blood Pressure [Ri ght Upper Arm] 143/75 H Pulse Oximetry 96 96 95 Oxygen Delivery Me thod Room Air 08/15/22 14:02 08/15/22 14:15 08/15/22 14:30 Temperature Pulse Rate 74 76 69 Pulse Rate [Left P ulse Oximeter] Respiratory Rate 16 Blood Pressure 141/72 H Blood Pressure [Le ft Arm] Blood Pressure [Ri ght Upper Arm] Pulse Oximetry 97 96 97 [facility] 08/15/22 14:34 08/15/22 14:45 08/15/22 14:47 Temperature Pulse Rate 76 67 65 Pulse Rate [Left P ulse Oximeter] Respiratory Rate 16 16 Blood Pressure 144/77 H 138/68 Blood Pressure [Le ft Arm] Blood Pressure [Ri ght Upper Arm] Pulse Oximetry 96 96 97 [facility] Room Air 08/15/22 15:00 08/15/22 15:02 08/15/22 15:16 Temperature Pulse Rate 70 72 71 Pulse Rate [Left P ulse Oximeter] Respiratory Rate Blood Pressure 126/69 Blood Pressure [Le ft Arm] Blood Pressure [Ri ght Upper Arm] Pulse Oximetry 96 97 93 Oxygen Delivery Id thod 08/15/22 15:25 08/15/22 15:30 08/15/22 15:32 Temperature Pulse Rate 70 72 69 Pulse Rate [Left P ulse Oximeter] Respiratory Rate Blood Pressure 145/72 H 154/87 H Blood Pressure [Le ft Arm] Blood Pressure [Ri ght Upper Arm] Pulse Oximetry 99 99 98 Oxygen Delivery Id thod 08/15/22 15:45 08/15/22 15:47 08/15/22 16:00 Temperature Pulse Rate 70 66 75 Pulse Rate [Left P ulse Oximeter] Respiratory Rate Blood Pressure 140/72 H Blood Pressure [Le ft Arm] Blood Pressure [Ri ght Upper Arm] Pulse Oximetry 97 98 98 [facility] 08/15/22 16:02 08/15/22 19:00 08/15/22 19:36 Temperature 97.7 F 97.4 F L Pulse Rate 70 Pulse Rate [Left P ulse Oximeter] 76 71 Respiratory Rate 18 18 Blood Pressure 151/85 H Blood Pressure [Le ft Arm] 168/74 H 130/95 H Blood Pressure [Ri ght Upper Arm] Pulse Oximetry 97 97 96 Oxygen Delivery Me thod Room Air Room Air 08/15/22 21:00 08/15/22 21:54 08/16/22 00:20 Temperature Pulse Rate 64 61 Pulse Rate [Left P ulse Oximeter] 64 Respiratory Rate 15 Blood Pressure Blood Pressure [Le ft Arm] 148/79 H Blood Pressure [Ri ght Upper Arm] Pulse Oximetry 96 Oxygen Delivery Me thod Room Air 08/16/22 00:24 08/16/22 03:12 08/16/22 07:00 Temperature 97.5 F L 97.5 F L Pulse Rate 61 Pulse Rate [Left P ulse Oximeter] 67 63 Respiratory Rate 18 18 Blood Pressure Blood Pressure [Le ft Arm] 138/95 H 168/84 H Blood Pressure [Ri ght Upper Arm] Pulse Oximetry 96 95 Oxygen Delivery Me thod Room Air Room Air DS: Data Data Completed and Pending Labs on day of discharge: Labs from last 24 hours 08/16/22 08/16/22 08/15/22 06:12 00:15 18:26 WBC 5.60 RBC 3.93 L Hgb 12.2 14.1 13.7 Hct 38.3 MCV 98 MCH 31 MCHC 32 RDW Coeff of Felix Plt Count 198 Neut % (Auto) Lymph % (Auto) King % (Auto) Eos % (Auto) Baso % (Auto) Neut # (Auto) Lymph # (Auto) [place] # (Auto) Eos # (Auto) Baso # (Auto) INR Sodium 136 Potassium 3.6 Chloride 104 Carbon Dioxide 25 BUN 10 Creatinine 0.7 Estimated Creat Clear 34.99 Estimated GFR 88 Glucose 122 H Lactate Calcium 9.0 Blood Type Antibody Screen 08/15/22 08/15/22 13:24 13:15 WBC 5.31 RBC 4.45 Hgb 13.9 Hct 43.2 MCV 97 MCH 31 MCHC 32 RDW Coeff of Felix 13.1 Plt Count 219 Neut % (Auto) 62.1 Lymph % (Auto) 27.3 King % (Auto) 7.3 Eos % (Auto) 2.3 Baso % (Auto) 0.6 Neut # (Auto) 3.30 Lymph # (Auto) 1.45 King # (Auto) 0.40 Eos # (Auto) 0.12 Baso # (Auto) 0.03 INR 1.22 H Sodium 139 Potassium 3.9 Chloride 107 Carbon Dioxide 19 L BUN 13 Creatinine 0.8 Estimated Creat Clear 34.99 Estimated GFR 75 Glucose 239 H Lactate 1.9 Calcium 9.6 Blood Type A Positive Antibody Screen NEGATIVE Discharge Plan Discharge Disposition: Home, Self-Care Date of Admission: 08/15/22 16:00 Attending Provider on Discharge: Deonte Prieto Primary Care Provider: Cherie Raza Condition: Stable Anticipated Discharge Date/Time: 08/16/22 13:00 Discharge Medications: Continued venlafaxine 150 mg capsule,extended release 24hr 150 mg PO DAILY nitroglycerin 0.4 mg tablet, sublingual 0.4 mg sublingual Q5M PRN Patient Comments: PLACE 1 TABLET UNDER TONGUE EVERY 5 MINUTES NEEDED FOR CHEST PAIN metoprolol succinate 25 mg tablet extended release 24 hr 25 mg PO BID losartan 100 mg tablet 100 mg PO DAILY rosuvastatin 20 mg tablet 20 mg PO HS insulin glargine [Lantus Solostar U-100 Insulin] 100 unit/mL (3 mL) insulin pen 14 unit SUBCUT QAM Patient Comments: Jardiance 25 mg tablet 25 mg PO DAILY amlodipine 10 mg tablet 10 mg PO DAILY acetaminophen [Arthritis Pain Reliever] 650 mg tablet extended release 650 - 1,300 mg PO Q8H PRN cyanocobalamin (vitamin B-12) 1,000 mcg/mL solution 1,000 mcg IM .MONTHLY furosemide 40 mg tablet 40 mg PO MOWEFR Rx Instructions: REPORTS TAKING THREE TIMES A WEEK, ON SUNDAY, SUNDAY AND SUNDAY Mounjaro 10 mg/0.5 mL pen injector 15 mg subcut .WEEKLY cholecalciferol (vitamin D3) 25 mcg (1,000 unit) capsule 25 mcg PO DAILY amoxicillin 500 mg tablet 2,000 mg PO DIRECTED Rx Instructions: 1 hour before dental appt Held Eliquis 5 mg tablet 5 mg PO BID Hold Instructions: Resume on 08/21/22. Hold your eliquis until you are approved to resume by your primary care provider Discharge Orders: Discharge Order (Routine); Ordered 08/16/22 Ordered By: Deonte Prieto Patient Education: Gastrointestinal Bleeding (DC) Activity Level: Activity as Tolerated Discharge Diet: Diabetic Diet Detail: Please resume previous home diet Follow Up Appointments: Cherie Raza MD [Primary Care Provider] - 08/21/22 8:25 am (Video visit with Dr. Raza. Patient needs to do updates in the Patient portal before appointment. Hemoglobin check [facility] draw) Provider,Not a Local [Referring] - Forms: [place] Info Instructions Discharge Comments: Please return to ED if having blood in stool; please check hemoglobin on 08/18 at your clinic please discuss with your clinic provider on when they would like you to resume eliquis
[2022-08-16] MEDS: FUROSEMIDE 40 MG TABLET PO (11:05)
[2022-08-16] MEDS: AMLODIPINE 10 MG TABLET PO (11:06)
[2022-08-16 11:28] LABS: Hemoglobin* 13.2 gm/dL (12.0-16.0)
[2022-08-16 11:30] VITALS: BP 152/91; PULSE 72; RESP 20; TEMP 36.6; O2SAT 95
[2022-08-16 12:36] VITALS: BP 151/85; PULSE 61; RESP 18; TEMP 36.4
--- NOTE | 2022-08-16 16:24 | PC.NURSE ---
Please see eMar for meds given to this patient for chronic back discomfort. No further BMS. HGB stable at 13.2. Eval by Dr. Prieto. IV site discontinued. Pt verbalized understanding of d/c diagnosis, home meds, f/up appts for lab & with Dr. JEFFERY. Discussed sx to report urgently to physician secondary to GI bleed. Discharged via w/c to own home with all personal belongings @ [id number], dtr Ghislaine as transportation.
== END 2022-08-16 13:10 | disposition home or self-care (01) ==
LOC: ED 15:19 → MEDSURG 16:01
PROVIDERS: Admitting Provider Hospitalist; Emergency Provider Emergency Medicine Emergency Medical Services; PCP Internal Medicine; Visit Provider Hospitalist
DX: K92.2 Gastrointestinal hemorrhage, unspecified (principal); K91.840 Postprocedural hemorrhage of a digestive system organ or structure following a digestive system procedure; G89.29 Other chronic pain; M54.9 Dorsalgia, unspecified; D35.02 Benign neoplasm of left adrenal gland; N28.1 Cyst of kidney, acquired; E11.9 Type 2 diabetes mellitus without complications; R14.0 Abdominal distension (gaseous); I25.10 Atherosclerotic heart disease of native coronary artery without angina pectoris; I10 Essential (primary) hypertension; Z79.4 Long term (current) use of insulin; Z79.84 Long term (current) use of oral hypoglycemic drugs; Z87.891 Personal history of nicotine dependence; Z86.59 Personal history of other mental and behavioral disorders; Z87.448 Personal history of other diseases of urinary system; Z87.898 Personal history of other specified conditions; Z98.84 Bariatric surgery status; Z90.49 Acquired absence of other specified parts of digestive tract; Z90.89 Acquired absence of other organs; Z90.710 Acquired absence of both cervix and uterus
CPT/HCPCS: 36415; 74177; 80048; 83605; 85018; 85025; 85027; 85610; 86850; 86900; 86901; 96361; 96374; 96375; 99284; 99285; G0378; A9270; J1170; J7120; Q9967

== ENCOUNTER 2022-08-17 17:13 | Emergency (ER) | payer MEDICARE, OTHER, SELFPAY ==
[2022-08-17 17:27] VITALS: BP 131/76; PULSE 84; RESP 18; TEMP 36.4; O2SAT 97; BMI 34.8
--- NOTE | 2022-08-17 17:51 | ED_ITS ---
HPI - General Adult General Time Seen by Provider: 17:51 Date Seen: 08/17/22 Chief complaint: Abdominal Pain Stated complaint: Blood in stool Time Seen by Provider: 08/17/22 17:35 Source: patient, RN notes reviewed and old records reviewed Mode of arrival: ambulatory Limitations: no limitations History of Present Illness HPI narrative: Patient is a 76-year-old female coming in accompanied by family with abdominal cramping and subsequent dark tarry bowel movement surrounded by blood. She still has a little cramping, states it feels like maybe a start of a menstrual cycle would feel. Overall no abdominal pain, no nausea vomiting. Her course is complicated by the fact that she just had colonoscopy last week on Sunday at [facility]. She had been on Eliquis but that was held for this procedure, she took 1 dose on Sunday but then stopped. She was in our ER on August 15 with lower GI bleed presumably, did get TXA. She was observed overnight in her hemoglobin stayed stable, no further bleeding. She has not resumed her Eliquis. She did not have a bowel movement while in the hospital but did not have any bleeding either. She reports a remote history of a bleeding ulcer in her stomach. She did have polyps removed on this colonoscopy. She states they looked down her throat but did not go all the way down in the stomach. She was having globus sensation after thyroidectomy and were just looking in the proximal portion of her oropharynx. She has not had much of an appetite. Only thing she reports she has eaten today was a small taco. Was after this that her stool was stimulated. Patient also notes some limitation with hearing due to Meniere's disease. She does seem to hear me fine when I am talking to her. Related Data Home Medications Medication Instructions Recorded Confirmed empagliflozin 25 mg tablet 25 mg PO DAILY 10/05/21 08/15/22 (Jardiance) insulin glargine 100 unit/mL (3 14 unit subcut QAM 10/05/21 08/16/22 mL) subcutaneous pen (Lantus Solostar U-100 Insulin) losartan 100 mg tablet 100 mg PO DAILY 10/05/21 08/15/22 metoprolol succinate 25 mg 25 mg PO BID 10/05/21 08/16/22 tablet,extended release 24 hr nitroglycerin 0.4 mg sublingual 0.4 mg sublingual Q5M PRN 10/05/21 08/15/22 tablet rosuvastatin 20 mg tablet 20 mg PO HS 10/05/21 08/15/22 venlafaxine 150 mg 150 mg PO DAILY 10/05/21 08/15/22 capsule,extended release 24 hr apixaban 5 mg tablet (Eliquis) 5 mg PO BID 08/15/22 08/15/22 acetaminophen 650 mg 650 - 1,300 mg PO Q8H PRN 08/16/22 08/16/22 tablet,extended release (Arthritis Pain Reliever) amlodipine 10 mg tablet 10 mg PO DAILY 08/16/22 08/16/22 amoxicillin 500 mg tablet 2,000 mg PO DIRECTED 08/16/22 08/16/22 cholecalciferol (vitamin D3) 25 25 mcg PO DAILY 08/16/22 08/16/22 mcg (1,000 unit) capsule cyanocobalamin (vitamin B-12) 1,000 mcg IM .MONTHLY 08/16/22 08/16/22 1,000 mcg/mL injection solution furosemide 40 mg tablet 40 mg PO MOWEFR 08/16/22 08/16/22 tirzepatide 10 mg/0.5 mL 15 mg subcut .WEEKLY 08/16/22 08/16/22 subcutaneous pen injector (Avni) Allergies Allergy/AdvReac Type Severity Reaction Status Date / Time hydrocodone [From Vicodin] Allergy Rash Verified 08/15/22 13:01 gabapentin AdvReac disoriented Verified 08/15/22 13:01 adhesives Allergy red Uncoded 08/15/22 13:01 swelling Review of Systems Status of ROS: Reports: 6 or more systems reviewed and unremarkable except as noted in History and below [facility] Social History What is your current living situation?: I presently have a place to live Problems where you live: no known problems Problems where you live details: NA In the past 12 months, utilities in danger of being shut off: no In the past 12 mos, have been you worried that your food would run out before you had money to buy more?: never true In the past 12 mos, the food you bought just didn't last and you didn't have money to buy more?: never true Highest level of school completed/degree received: some college, no degree Smoking Status: Never smoker Do you use any of these nicotine containing products: None Second hand tobacco smoke exposure: No How often do you have a drink containing alcohol: monthly or less Alcohol type: beer How many standard drinks containing alcohol do you have on a typical day: 1 or 2 How often do you have six or more drinks on one occasion: Never AUDIT-C Alcohol total score: 1 Non-prescribed substance use: denies use Caffeine: Yes How often does anyone, including family, friends and others, physically hurt you : never How often does anyone, including family, friends and others, insult or talk down to you: never How often does anyone, including family, friends and others, threaten you with harm: never How often does anyone, including family, friends and others, scream or curse at you: never service: No Exam Const: Vital Signs, click to edit/add: Vital Signs - 24 hr 08/17/22 17:27 08/17/22 19:29 08/17/22 19:32 Temperature 97.6 F 97.5 F L Pulse Rate [Pulse Oximeter] 84 72 Respiratory Rate 18 18 Blood Pressure [Ri ght Upper Arm] 131/76 140/78 H Pulse Oximetry 97 95 97 Oxygen Delivery Me thod Room Air Room Air Documenting provider has reviewed patient's vital signs: yes Common normals: no apparent distress, oriented x3, no limitations, healthy appearing, alert and well nourished General appearance: cooperative, comfortable, well kempt and well developed Nutritional appearance: obese HENMT: Common normals: normocephalic, head/scalp atraumatic, hearing grossly normal bilaterally and external nose normal Head and scalp: normocephalic and atraumatic Face and sinus: normal facial exam Nose: external nose normal Eye: Common normals: PERRL, EOMs intact bilaterally, conjunctivae normal and no scleral icterus Conjunctiva: conjunctiva(e) normal Pupil: PERRL Neck & C-Spine: Common normals: full ROM, no lymphadenopathy and supple Resp: Common normals: normal respiratory effort, no retractions, no use of accessory muscles and clear to auscultation bilaterally Effort & inspection: able to speak in complete sentences Auscultation: clear to auscultation bilaterally Cardio: Common normals: regular rate, regular rhythm, S1 normal heart sound, S2 normal heart sound, no gallops, no clicks and no murmurs Rate: regular rate Rhythm: regular rhythm Heart sounds: S1 normal and S2 normal GI: Other: Abdomen is a bees, normal bowel sounds. She does complain of some mild tenderness in the distribution along the colon from the right side through the upper abdomen in over to mid left. There is no central abdominal pain. It is interesting that the pain seems to followup pathway where the colon would track. I do not feel any masses, no rebound or guarding. Neuro: Common normals: oriented x3 Sensorium/orientation: alert Psych: Appearance: well kempt Course Course Hospital Course: Patient had an unremarkable CT on August 15, I am not inclined to repeat this. We will stab lotion IV. Will see where her hemoglobin is. We unfortunately do not have emergency colonoscopy services here. I have reviewed with them that she may indeed need potential transfer for repeat scoping him and I do think this may presented difficulty as I know current bed situations at the [facility] are difficult. I specifically no that [place] was on divert earlier. We can try contacting facilities if it is looking that this may be needed. I will give IV Protonix, there is always possibility that this is contributed by upper GI bleed. Reevaluation(s) Time of Reevaluation #1: 20:18 Reevaluation #1: Patient is only had the 1 episode bleeding, nothing further. Have reviewed that her hemoglobin is 13.3 and is completely stable. Did speak with our hospitalist who placed her in the hospital on August 15. He agrees that with the stable hemoglobin, outpatient follow-up for repeat hemoglobin tomorrow, outpatient primary care provider appointment next week on August 21, that she does seems stable. [facility] is on complete diversion. There are bed restrictions in some of the facilities in the [facility] as well at this point, admittedly have not called all of them however. We do not do emergent endoscopy here. She would not accept blood products. At this time would recommend ongoing observation outpatient, recommendations for clear liquid diet for next 24-48 hours. Staying off Eliquis. Vital Signs Vital signs: Initial Vital Signs Temperature 97.6 F 08/17/22 17:27 Temperature Source Temporal Artery Scan 08/17/22 17:27 Pulse Rate 84 07/06/23 17:27 Respiratory Rate 18 08/17/22 17:27 Blood Pressure 131/76 08/17/22 17:27 Blood Pressure Mean 94 08/17/22 17:27 Pulse Oximetry 97 08/17/22 17:27 Oxygen Delivery Method Room Air 08/17/22 17:27 Vital Signs Temperature 97.6 F 08/17/22 17:27 Pulse Rate 84 08/17/22 17:27 Respiratory Rate 18 08/17/22 17:27 Blood Pressure 131/76 08/17/22 17:27 Pulse Oximetry 97 08/17/22 17:27 Oxygen Delivery Method Room Air 08/17/22 17:27 Temperature 97.5 F L 08/17/22 19:29 Pulse Rate 72 08/17/22 19:29 Respiratory Rate 18 08/17/22 19:29 Blood Pressure 140/78 H 08/17/22 19:29 Pulse Oximetry 97 08/17/22 19:32 Oxygen Delivery Method Room Air 08/17/22 19:29 Medical Decision Making Lab Data Lab results reviewed: Yes I reviewed the patient's lab results Labs: Lab Results 08/17/22 Range/Units 18:15 WBC 7.07 (4.50-11.00) K/uL RBC 4.26 (4.00-5.20) m/uL Hgb 13.3 (12.0-16.0) gm/dL Hct 42.1 (33.0-51.0) % MCV 99 (80-100) fL MCH 31 (26-34) pg MCHC 32 (32-36) gm/dL RDW Coeff of Felix 13.2 (11.5-15.5) % Plt Count 235 (140-440) K/uL Neut % (Auto) 65.8 (42.0-72.0) % Lymph % (Auto) 23.9 (20-44) % [place] % (Auto) 8.1 (0.0-11.0) % Eos % (Auto) 1.7 (0.0-7.0) % Baso % (Auto) 0.4 (0.0-3.0) % Neut # (Auto) 4.65 (1.7-7.0) K/uL Lymph # (Auto) 1.69 (0.90-2.90) K/uL [place] # (Auto) 0.60 (0.00-0.90) K/UL Eos # (Auto) 0.12 (0.00-0.50) K/uL Baso # (Auto) 0.03 (0.00-0.30) K/uL Abs Immat Gran (auto) 0.01 (0.00-0.30) K/uL Imm/Tot Granulo (auto) 0.1 % Sodium 141 (135-149) mmol/L Potassium 3.8 (3.6-5.1) mmol/L Chloride 104 (96-114) mmol/L Carbon Dioxide 28 (20-32) mmol/L BUN 18 (7-30) mg/dL Creatinine 1.0 (0.5-1.5) mg/dL Estimated Creat Clear 34.99 Estimated GFR 58 ml/min Glucose 255 H (60-115) mg/dL Lactate 2.3 H (0.5-1.9) mmol/L Calcium 9.8 (8.4-10.6) mg/dL Total Bilirubin 1.0 (0.1-1.5) mg/dL AST 53 H (12-35) U/L ALT 42 H (4-35) U/L Alkaline Phosphatase 53 (40-150) U/L C-Reactive Protein < 0.5 L (0.5-1.0) mg/dL Total Protein 7.7 (6.0-8.3) g/dL Albumin 4.6 (3.3-5.0) g/dL Critical Care Time Critical Care Time Critical Care Time: No Discharge Plan Discharge Clinical Impression: Lower gastrointestinal hemorrhage Patient Disposition: Home, Self-Care Condition: Stable Instructions: Rectal Bleeding (ED) Additional Instructions: Need to stay off Eliquis still. Have hemoglobin recheck tomorrow that is been scheduled prior. Keep clinic follow-up appointment for next week. Recommend clear liquid diet for the next 24-48 hours. If you have increased bleeding, see further episodes of rectal bleeding, developed severe abdominal pain, do need to be re-evaluated emergently. Activity Level: No strenuous activity Discharge Diet: Clear Liquid Prescriptions: No Action venlafaxine 150 mg capsule,extended release 24hr 150 mg PO DAILY nitroglycerin 0.4 mg tablet, sublingual 0.4 mg sublingual Q5M PRN Patient Comments: PLACE 1 TABLET UNDER TONGUE EVERY 5 MINUTES NEEDED FOR CHEST PAIN metoprolol succinate 25 mg tablet extended release 24 hr 25 mg PO BID losartan 100 mg tablet 100 mg PO DAILY rosuvastatin 20 mg tablet 20 mg PO HS insulin glargine [Lantus Solostar U-100 Insulin] 100 unit/mL (3 mL) insulin pen 14 unit SUBCUT QAM Patient Comments: Jardiance 25 mg tablet 25 mg PO DAILY Eliquis 5 mg tablet 5 mg PO BID Hold Instructions: Resume on 08/21/22. Hold your eliquis until you are approved to resume by your primary care provider amlodipine 10 mg tablet 10 mg PO DAILY acetaminophen [Arthritis Pain Reliever] 650 mg tablet extended release 650 - 1,300 mg PO Q8H PRN cyanocobalamin (vitamin B-12) 1,000 mcg/mL solution 1,000 mcg IM .MONTHLY furosemide 40 mg tablet 40 mg PO MOWEFR Rx Instructions: REPORTS TAKING THREE TIMES A WEEK, ON SUNDAY, SUNDAY AND SUNDAY Mounjaro 10 mg/0.5 mL pen injector 15 mg subcut .WEEKLY cholecalciferol (vitamin D3) 25 mcg (1,000 unit) capsule 25 mcg PO DAILY amoxicillin 500 mg tablet 2,000 mg PO DIRECTED Rx Instructions: 1 hour before dental appt Follow Up/Referrals: Cherie Raza MD [Primary Care Provider] - Stand Alone Forms: [facility] Info Instructions
[2022-08-17 18:20] LABS: Lactate* 2.3 mmol/L (0.5-1.9)
[2022-08-17 18:21] LABS: Basophils Absolute Auto 0.03 K/uL (0.00-0.30); Basophils Percent Auto 0.4 % (0.0-3.0); Eosinophils Absolute Auto 0.12 K/uL (0.00-0.50); Eosinophils Percent Auto 1.7 % (0.0-7.0); Hematocrit 42.1 % (33.0-51.0); Hemoglobin* 13.3 gm/dL (12.0-16.0); Immature Granulocytes Abs Auto 0.01 K/uL (0.00-0.30); Immature Granulocytes Pct Auto 0.1 %; Lymphocytes Absolute Auto 1.69 K/uL (0.90-2.90); Lymphocytes Percent Auto 23.9 % (20-44); Mean Corpuscular HGB Conc 32 gm/dL (32-36); Mean Corpuscular Hemoglobin 31 pg (26-34); Mean Corpuscular Volume 99 fL (80-100); Monocytes Percent Auto 8.1 % (0.0-11.0); Neutrophils Absolute Auto 4.65 K/uL (1.7-7.0); Neutrophils Percent Auto 65.8 % (42.0-72.0); Platelet Count* 235 K/uL (140-440); RDW Coefficient of Variation % 13.2 % (11.5-15.5); Red Blood Count 4.26 m/uL (4.00-5.20); White Blood Count* 7.07 K/uL (4.50-11.00)
[2022-08-17 18:22] LABS: Slide Review Reflex No
[2022-08-17] MEDS: 0.9 % SODIUM CHLORIDE 1000 ml 1,000 ML 500 ML IV (18:31)
[2022-08-17] MEDS: PANTOPRAZOLE SODIUM 40 MG INJ 80 MG IVP (18:32)
[2022-08-17 18:36] LABS: Albumin* 4.6 g/dL (3.3-5.0); Chloride* 104 mmol/L (96-114)
[2022-08-17 18:37] LABS: Potassium* 3.8 mmol/L (3.6-5.1); Sodium* 141 mmol/L (135-149)
[2022-08-17 18:39] LABS: Est. Creatinine Clearance* 34.99; Estimated Glomerular Filt Rate 58 ml/min
[2022-08-17 18:40] LABS: Alanine Aminotransferase* 42 U/L (4-35); Alkaline Phosphatase* 53 U/L (40-150); Aspartate Amino Transferase* 53 U/L (12-35); Blood Urea Nitrogen* 18 mg/dL (7-30); Calcium* 9.8 mg/dL (8.4-10.6); Carbon Dioxide* 28 mmol/L (20-32); Glucose* 255 mg/dL (60-115); Total Protein* 7.7 g/dL (6.0-8.3)
[2022-08-17 18:48] LABS: C Reactive Protein* < 0.5 mg/dL (0.5-1.0)
[2022-08-17 19:29] VITALS: BP 140/78; PULSE 72; RESP 18; TEMP 36.4; O2SAT 95
[2022-08-17 19:32] VITALS: O2SAT 97
== END 2022-08-17 20:45 | disposition home or self-care (01) ==
PROVIDERS: Emergency Provider Family Medicine; PCP Internal Medicine
DX: K92.2 Gastrointestinal hemorrhage, unspecified (principal)
CPT/HCPCS: 36415; 80053; 83605; 85025; 86140; 94761; 96374; 99284; C9113; J7030

== ENCOUNTER 2022-11-20 22:04 | Emergency (ER) | payer MEDICARE, OTHER, SELFPAY ==
[2022-11-20 22:32] VITALS: BP 177/82; PULSE 71; RESP 18; TEMP 36.6; O2SAT 99; BMI 32.1
[2022-11-20 22:47] VITALS: BP 151/57
[2022-11-20 23:02] VITALS: BP 171/70
--- NOTE | 2022-11-20 23:14 | CRLHL7_ITS ---
For Patients: As a result of the Century Cures Act, medical imaging exams and procedure reports are released immediately into your electronic medical record. You may view this report before your referring provider. If you have questions, please contact your health care provider. INDICATION: Hypertension TECHNIQUE: Chest 2 views. COMPARISON: March 11, 2019 FINDINGS: Cardiovascular and mediastinum: Status post median sternotomy. Heart size and vasculature are normal in caliber and appearance. Mediastinum is within normal limits. Lungs and pleural spaces: Lungs are clear. No sign of infiltrate or mass. No sign of pleural effusion. No pneumothorax. Bones and soft tissues: No significant findings. IMPRESSION: No sign of acute disease. Dictated by Marina Flower MD @ 11/21/2022 1:01:22 AM (Electronically Signed)
[2022-11-20 23:17] VITALS: BP 177/92
--- NOTE | 2022-11-20 23:49 | ED.GENADULT ---
HPI - General Adult General Time Seen by Provider: 23:49 Date Seen: 11/20/22 Chief complaint: Hypertension Stated complaint: high blood pressure Time Seen by Provider: 11/20/22 23:14 History of Present Illness HPI narrative: This is a pleasant 76-year-old female accompanied to the ER [facility] by her with concern for high blood pressure measurements at home as well as chest discomfort. She has a complex past history. She has known coronary artery disease. She had a CABG in 2002. She also had evidence for non ST elevation DC on 10/20/2022. She was treated at [facility]. Angiogram on 10/20 showed a patent RAMOS to LAD graft. She had high-grade distal stenosis of her SVG-om 3 graft. She also had high-grade proximal RCA stenosis. She had significant small vessel CAD including her OM1, OM2, distal RCA/our PA V. She underwent successful stenting of her distal SVG-om 3 graft as well as stenting to her ostial/proximal RCA. Echocardiogram on 10/20 showed EF of 60-65%. She also has a history of paroxysmal AFib, apparently has a congenital heart defect (possibly PFO? ), high cholesterol, chronic kidney disease, previous GI bleeding with significant anemia while on Xarelto, type 2 diabetes,. It looks like she was discharged home from the hospital on Eliquis 5 mg b.i.d. for stroke prophylaxis with a history of AFib. She is also on aspirin 81 mg daily and clopidogrel 75 mg daily for her stents. For blood pressure control she is currently on metoprolol succinate 50 mg daily, losartan 100 mg daily, and p.r.n. Lasix (for peripheral edema) Since he was discharged from the hospital in early October she has been having trouble with high blood pressure. She messaged blood pressure with a cuff at home every day intense to get high readings. Most of them range in the 170-1 80/90/100 region. Sometimes her blood pressure will be lower down in the 150 systolic range. She had a checkup with her regular doctor a couple weeks ago on 10/30. There is a very good synopsis/note from that visit available through [facility] everywhere. She is planning to see a new electrical drafter through the [facility] system in 2 days on Sunday. She and her traveled down to [place] last week to visit family and signed paperwork. She was doing reasonably well during most of her trip. However the day before this started to come back, 2 days ago on Sunday she began to have some substernal chest discomfort. She was short of breath during the episode. No pleuritic pain. It was present mostly during the morning when she woke up and lasted a couple of hours before it went away. It did not really radiate up to her jaw or down her arm or through to her back. She had chest discomfort again yesterday on Sunday morning was very early mild and brief. She was mildly short of breath during the episode. She had another mild episode of chest discomfort that occurred again this morning (on Sunday morning that again was mild and brief. She is not having any chest pain this afternoon or this evening. No other symptoms. She is generally able to do exercise and walk up and down steps without any chest pain but often will get short of breath with exertion. This is a longstanding baseline for her. Not really changed from normal. No new swelling in her legs. She has been taking all of her blood thinners except for she stop taking the baby aspirin a couple of days ago because she felt like she was bruising to easily. She did have 1 brief self-limited episode of epistaxis that occurred from her right knee raise this afternoon. She is still on her Plavix and Eliquis. She is currently asymptomatic but her family encouraged her to come here to the ER tonight because her blood pressure is still measuring ?too high. ?. No active chest pain or other symptoms tonight. Related Data Home Medications Medication Instructions Recorded Confirmed empagliflozin 25 mg tablet 25 mg PO DAILY 10/05/21 11/20/22 (Jardiance) insulin glargine 100 unit/mL (3 14 unit subcut QAM 10/05/21 08/16/22 mL) subcutaneous pen (Lantus Solostar U-100 Insulin) losartan 100 mg tablet 100 mg PO DAILY 10/05/21 08/15/22 metoprolol succinate 25 mg 25 mg PO BID 10/05/21 11/20/22 tablet,extended release 24 hr nitroglycerin 0.4 mg sublingual 0.4 mg sublingual Q5M PRN 10/05/21 08/15/22 tablet rosuvastatin 20 mg tablet 20 mg PO HS 10/05/21 11/20/22 venlafaxine 150 mg 150 mg PO DAILY 10/05/21 11/20/22 capsule,extended release 24 hr apixaban 5 mg tablet (Eliquis) 5 mg PO BID 08/15/22 11/20/22 acetaminophen 650 mg 650 - 1,300 mg PO Q8H PRN 08/16/22 11/20/22 tablet,extended release (Arthritis Pain Reliever) amlodipine 10 mg tablet 10 mg PO DAILY 08/16/22 08/16/22 amoxicillin 500 mg tablet 2,000 mg PO DIRECTED 08/16/22 08/16/22 cholecalciferol (vitamin D3) 25 25 mcg PO DAILY 08/16/22 11/20/22 mcg (1,000 unit) capsule cyanocobalamin (vitamin B-12) 1,000 mcg IM .MONTHLY 08/16/22 11/20/22 1,000 mcg/mL injection solution furosemide 40 mg tablet 40 mg PO MOWEFR 08/16/22 08/16/22 tirzepatide 10 mg/0.5 mL 15 mg subcut .WEEKLY 08/16/22 08/16/22 subcutaneous pen injector (Ianunenmaro) Allergies Allergy/AdvReac Type Severity Reaction Status Date / Time hydrocodone [From Vicodin] Allergy Rash Verified 08/15/22 13:01 gabapentin AdvReac disoriented Verified 08/15/22 13:01 adhesives Allergy red Uncoded 08/15/22 13:01 swelling [facility] Medical History (Updated 11/20/22 @ 22:53 by Zohra Duke RN) Diabetes type 2, controlled ?E11.9 - Type 2 diabetes mellitus without complications (ICD-10) Surgical History (Updated 11/20/22 @ 22:53 by Zohra Duke RN) History of quadruple bypass ?Z95.1 - Presence of aortocoronary bypass graft (ICD-10) Social History What is your current living situation?: I presently have a place to live Problems where you live: no known problems Problems where you live details: NA In the past 12 months, utilities in danger of being shut off: no In past 12 months, lack of transportation kept you from medical appts, meetings, work, or getting things needed for daily living: no In the past 12 mos, have been you worried that your food would run out before you had money to buy more?: never true In the past 12 mos, the food you bought just didn't last and you didn't have money to buy more?: never true Highest level of school completed/degree received: some college, no degree Smoking Status: Never smoker Do you use any of these nicotine containing products: None Second hand tobacco smoke exposure: No How often do you have a drink containing alcohol: monthly or less Alcohol type: beer How many standard drinks containing alcohol do you have on a typical day: 1 or 2 How often do you have six or more drinks on one occasion: Never AUDIT-C Alcohol total score: 1 Non-prescribed substance use: denies use Caffeine: Yes How often does anyone, including family, friends and others, physically hurt you: never How often does anyone, including family, friends and others, insult or talk down to you: never How often does anyone, including family, friends and others, threaten you with harm: never How often does anyone, including family, friends and others, scream or curse at you: never service: No Exam Narrative: Exam Narrative: Constitutional: Appears well-developed and well-nourished. Alert. Conversant. Hard of hearing but polite. Non toxic. Interacting supportively with her . HENT: Head: Atraumatic. Nose: Nose normal. Mouth/Throat: Oral mucosa is clear and moist. no trismus. Pharynx normal. Tonsils symmetric. No tonsillar enlargement, erythema, or exudate. Eyes: Conjunctivae normal. EOM normal. Pupils equal, round, and reactive to light. No scleral icterus. Neck: Normal range of motion. Neck supple. No tracheal deviation present. No JVD. Cardiovascular: Normal rate, regular rhythm. No gallop. No friction rub. No murmur heard. Symmetric radial and PT artery pulses Pulmonary/Chest: Effort normal. No stridor. No respiratory distress. No wheezes. No rales. No rhonchi . No tenderness. Abdominal: Soft. Bowel sounds normal. No distension. No mass. No tenderness. No rebound. No guarding. Musculoskeletal: RUE: Normal range of motion. No tenderness. No deformity LUE: Normal range of motion. No tenderness. No deformity RLE: Normal range of motion. Trace to minimal ankle edema. No tenderness. No deformity LLE: Normal range of motion. Trace to minimal ankle edema. No tenderness. No deformity Lymph: No cervical adenopathy. Neurological: Alert and oriented to person, place, and time. Normal strength. CN II-VII intact. No sensory deficit. GCS eye subscore is 4. GCS verbal subscore is 5. GCS motor subscore is 6. Normal coordination Skin: Skin is warm and dry. No rash noted. No pallor. Normal capillary refill. Psychiatric: Normal mood. Normal affect. Const: Vital Signs, click to edit/add: Vital Signs - 24 hr 11/20/22 22:32 11/20/22 22:47 11/20/22 23:02 Temperature 97.9 F Pulse Rate [Left P ulse Oximeter] 71 Respiratory Rate 18 Blood Pressure 151/57 H 171/70 H Blood Pressure [Le ft Upper Arm] 177/82 H Pulse Oximetry 99 Oxygen Delivery Me thod Room Air 11/20/22 23:17 11/21/22 01:30 Temperature Pulse Rate [Left P ulse Oximeter] Respiratory Rate Blood Pressure 177/92 H 190/69 H Blood Pressure [Le ft Upper Arm] Pulse Oximetry Oxygen Delivery Me thod Course Vital Signs Vital signs: Initial Vital Signs Temperature 97.9 F 11/20/22 22:32 Temperature Source Temporal Artery Scan 11/20/22 22:32 Pulse Rate 71 11/20/22 22:32 Respiratory Rate 18 11/20/22 22:32 Blood Pressure 177/82 H 11/20/22 22:32 Blood Pressure Mean 113 H 11/20/22 22:32 Blood Pressure Position Sitting 11/20/22 22:32 Pulse Oximetry 99 11/20/22 22:32 Oxygen Delivery Method Room Air 11/20/22 22:32 Vital Signs Temperature 97.9 F 11/20/22 22:32 Pulse Rate 71 11/20/22 22:32 Respiratory Rate 18 11/20/22 22:32 Blood Pressure 177/82 H 11/20/22 22:32 Pulse Oximetry 99 11/20/22 22:32 Oxygen Delivery Method Room Air 11/20/22 22:32 Temperature 97.9 F 11/20/22 22:32 Pulse Rate 71 11/20/22 22:32 Respiratory Rate 18 11/20/22 22:32 Blood Pressure 190/69 H 11/21/22 01:30 Pulse Oximetry 99 11/20/22 22:32 Oxygen Delivery Method Room Air 11/20/22 22:32 Medical Decision Making MDM Narrative Medical decision making narrative: This patient presents to the ER today for evaluation of primarily high elevated blood pressure readings but also recent episodes of chest pain. Differential was broad. No evidence of palpitations, syncope or other cardiac dysrhythmia. She does have a known history of paroxysmal AFib but appears to be in sinus rhythm on her EKG tonight. EKG shows no evidence for pericarditis. Clinical presentation not suggestive of myocarditis. Chest x-ray shows no evidence for pneumonia, pneumothorax, pulmonary edema, pleural effusion, rib fracture, cardiomegaly. Mediastinum is normal on the x-ray. The patient has no ripping or tearing pain through to the back and has symmetric pulses on exam, no other acute neuro findings so I doubt aortic dissection. Risk of radiation and contrast exposure would outweigh the benefit of CT angiogram. We considered PE for this patient. However she does not have any persistent chest pain, tachycardia, hypoxia, or difficulty breathing here in the ER. Oxygen is normal. She is already on Eliquis for anticoagulation and has been consistently therapeutic with that. She is also on Plavix. She recently stopped aspirin. No wheezing or bronchospasm to suggest COPD/asthma. No signs of chest wall cellulitis, shingles, injury. We considered possible ACS. She has a very complex heart history with recent stents to her proximal RCA as well as to her SVG-om 3 graft.. She also has a a residual area of stenosis including in her distal RCA/RPA V that was not stented. With chest pain during the morning for the past 3 days, consider possible ACS. workup with EKG and troponin is negative. Given time since onset of symptoms, we would expect most likely ACS does show up on troponin. Discussed with Cardiology, Dr. Hernandez, from [facility]. We reviewed her recent angiogram. Knowing that she had had stents into her proximal RCA and to her saphenous vein graft but not a stent into her distal RCA, he would recommend getting her a CT coronary angiogram or a repeat formal angiogram to double check the patency of her distal RCA. It is possible that stenosis could be causing symptomatic angina for her. If the patient declines to be hospitalized for repeat angiogram, he would recommend adjusting her blood pressure medications. Specifically discontinue metoprolol and switched to carvedilol 6.25 mg b.i.d.. Also if blood pressure still elevated after that change add Imdur 30 mg daily. There are currently no open beds at [facility] in the [facility] with [facility] We also contacted the [facility] in and they have no open beds at [email or web address] The patient is currently on a wait list for [facility]. There is no wait list for the [facility]. They would request that we call back tomorrow if we still need a bed for this patient. For tonight I have ordered 6.25 mg carvedilol. Will repeat troponin at 2:30 a.m.. She has already taken her nightly doses of Plavix and Eliquis this evening. I have also ordered oxycodone 10 mg p.o. for her chronic back pain. She normally takes 10 mg b.i.d.. Discussed with the patient. She would be willing to be hospitalized for further workup. She understands that there is a wait list and that she will not get a bed tonight. Hopefully tomorrow. She is willing to stay here in the ER for further testing. Her symptoms of chest pain and shortness of breath over the past 3 days or concerning for her. Discussed with my oncoming partner, Dr. Espinosa. He will follow up on the repeat troponin, follow-up blood pressure, and monitor the patient on the overnight. Lab Data Labs: Lab Results 11/20/22 Range/Units 23:30 Sodium 144 (135-149) mmol/L Potassium 3.7 (3.6-5.1) mmol/L Chloride 108 (96-114) mmol/L Carbon Dioxide 27 (20-32) mmol/L Anion Gap 9 (7-15) mEq/L BUN 19 (7-30) mg/dL Creatinine 1.3 (0.5-1.5) mg/dL Estimated Creat Clear 26.91 Estimated GFR 42 ml/min Glucose 112 (60-115) mg/dL Calcium 9.5 (8.4-10.6) mg/dL Total Bilirubin 1.4 (0.1-1.5) mg/dL AST 62 H (12-35) U/L ALT 62 H (4-35) U/L Alkaline Phosphatase 41 (40-150) U/L Troponin I 0.03 (0.01-0.04) ng/mL NT-Pro-B Natriuret Pep 428 pg/mL Total Protein 7.1 (6.0-8.3) g/dL Albumin 4.2 (3.3-5.0) g/dL Imaging Data Chest x-ray: Attestation: I have reviewed the pertinent imaging results. Radiologist's impression: IMPRESSION: No sign of acute disease. ECG Data Attestation: I personally reviewed and interpreted this ECG as follows: Interpretation: Normal sinus rhythm . Rate 67. First-degree AV block. MO 246 QRS axis left axis deviation. Right bundle-branch block. No pathologic Q-waves. ST segment/T wave: No ST segment elevation or depression. Nonspecific flattening. QTc: 488 Discharge Plan Discharge Prescriptions: No Action venlafaxine 150 mg capsule,extended release 24hr 150 mg PO DAILY nitroglycerin 0.4 mg tablet, sublingual 0.4 mg sublingual Q5M PRN Patient Comments: PLACE 1 TABLET UNDER TONGUE EVERY 5 MINUTES NEEDED FOR CHEST PAIN metoprolol succinate 25 mg tablet extended release 24 hr 25 mg PO BID losartan 100 mg tablet 100 mg PO DAILY rosuvastatin 20 mg tablet 20 mg PO HS insulin glargine [Lantus Solostar U-100 Insulin] 100 unit/mL (3 mL) insulin pen 14 unit SUBCUT QAM Patient Comments: Jardiance 25 mg tablet 25 mg PO DAILY Eliquis 5 mg tablet 5 mg PO BID Hold Instructions: Resume on 08/21/22. Hold your eliquis until you are approved to resume by your primary care provider amlodipine 10 mg tablet 10 mg PO DAILY acetaminophen [Arthritis Pain Reliever] 650 mg tablet extended release 650 - 1,300 mg PO Q8H PRN cyanocobalamin (vitamin B-12) 1,000 mcg/mL solution 1,000 mcg IM .MONTHLY furosemide 40 mg tablet 40 mg PO MOWE Rx Instructions: REPORTS TAKING THREE TIMES A WEEK, ON SUNDAY, SUNDAY AND SUNDAY Mounjaro 10 mg/0.5 mL pen injector 15 mg subcut .WEEKLY cholecalciferol (vitamin D3) 25 mcg (1,000 unit) capsule 25 mcg PO DAILY amoxicillin 500 mg tablet 2,000 mg PO DIRECTED Rx Instructions: 1 hour before dental appt Follow Up/Referrals: Cherie Raza MD [Primary Care Provider] -
[2022-11-20 23:53] LABS: Albumin* 4.2 g/dL (3.3-5.0); Chloride* 108 mmol/L (96-114); Potassium* 3.7 mmol/L (3.6-5.1); Sodium* 144 mmol/L (135-149)
[2022-11-20 23:55] LABS: Creatinine* 1.3 mg/dL (0.5-1.5); Est. Creatinine Clearance* 26.91; Estimated Glomerular Filt Rate 42 ml/min
[2022-11-20 23:56] LABS: Alanine Aminotransferase* 62 U/L (4-35); Alkaline Phosphatase* 41 U/L (40-150); Anion Gap 9 mEq/L (7-15); Aspartate Amino Transferase* 62 U/L (12-35); Bilirubin Total* 1.4 mg/dL (0.1-1.5); Blood Urea Nitrogen* 19 mg/dL (7-30); Calcium* 9.5 mg/dL (8.4-10.6); Carbon Dioxide* 27 mmol/L (20-32); Glucose* 112 mg/dL (60-115); Total Protein* 7.1 g/dL (6.0-8.3)
[2022-11-21] VITALS (41 sets, daily range): BP systolic 127–192; BP diastolic 55–93; PULSE 51–72; RESP 16–18; O2SAT 92–98
[2022-11-21 00:07] LABS: Troponin I* 0.03 ng/mL (0.01-0.04)
[2022-11-21 00:08] LABS: NT Pro B Type NatriureticPept* 428 pg/mL
[2022-11-21] MEDS: OXYCODONE 5 MG TABLET 10 MG PO (02:19)
[2022-11-21] MEDS: carvediloL 6.25 MG TABLET PO ×3 (02:19→08:16)
[2022-11-21 02:57] LABS: Troponin I* 0.03 ng/mL (0.01-0.04)
[2022-11-21] MEDS: OXYCODONE 5 MG TABLET PO ×2 (10:44→12:26)
--- NOTE | 2022-11-21 13:22 | ED.NURSE ---
Medications not given to pt due to ambulance arriving to take her to [facility]. Pt is stable.
--- NOTE | 2022-11-21 13:22 | ED.NURSE ---
Pt report given to GHISLAINE Rene at [facility]
== END 2022-11-21 13:22 | disposition short-term general hospital (02) ==
PROVIDERS: Emergency Provider Emergency Medicine; PCP Internal Medicine
DX: R07.9 Chest pain, unspecified (principal); R06.02 Shortness of breath
CPT/HCPCS: 36415; 71046; 80048; 80053; 81001; 83880; 84484; 93005; 94761; 96372; 99284; 99285; A9270

== ENCOUNTER 2022-11-21 13:12 | Outpatient (CLI) | payer MEDICARE, OTHER, SELFPAY | END 2022-11-21 13:13 | disposition home or self-care (01) | LOC: AMB 11-22 16:32 | PROVIDERS: PCP Internal Medicine; Visit Provider Emergency Medicine | DX: I10 Essential (primary) hypertension (principal); I49.9 Cardiac arrhythmia, unspecified | CPT/HCPCS: A0425; A0427 ==

== ENCOUNTER 2023-06-25 21:35 | Emergency (ER) | payer MEDICARE, OTHER, SELFPAY ==
[2023-06-25 22:22] VITALS: BP 118/71; PULSE 86; RESP 16; TEMP 36.6; O2SAT 98; BMI 31.2
--- NOTE | 2023-06-25 23:08 | ED_ITS ---
HPI - General Adult General Date Seen: 06/25/23 Chief complaint: Laceration/Wound Stated complaint: Cut toenail-Has been bleeding -on blood thinners Time Seen by Provider: 06/25/23 23:08 History of Present Illness HPI narrative: This is a pleasant 77-year-old female presenting to the ER today with bleeding from her left 5th toe (pinky toe). She cut her pinky toe today while trimming her toenails. Accidentally missed the tip of her toenail and cut the tip of her toe instead. She has a history of coronary artery disease with previous CABG and stents (on aspirin and Plavix), as well as paroxysmal AFib (on Eliquis) and history of type 2 diabetes. She has been trying to control the bleeding since about 230 this afternoon but has been unsuccessful. She tried elevating her toe, and icing her toe, and wrapping her toe in gauze. Related Data Home Medications Medication Instructions Recorded Confirmed empagliflozin 25 mg tablet 25 mg PO DAILY 10/05/21 11/20/22 (Jardiance) insulin glargine 100 unit/mL (3 14 unit subcut QAM 10/05/21 11/21/22 mL) subcutaneous pen (Lantus Solostar U-100 Insulin) losartan 100 mg tablet 100 mg PO DAILY 10/05/21 11/21/22 nitroglycerin 0.4 mg sublingual 0.4 mg sublingual Q5M PRN 10/05/21 11/21/22 tablet rosuvastatin 20 mg tablet 20 mg PO HS 10/05/21 11/20/22 venlafaxine 150 mg 150 mg PO DAILY 10/05/21 11/20/22 capsule,extended release 24 hr apixaban 5 mg tablet (Eliquis) 5 mg PO BID 08/15/22 11/20/22 acetaminophen 650 mg 650 mg PO Q8H PRN 08/16/22 11/21/22 tablet,extended release (Arthritis Pain Reliever) cholecalciferol (vitamin D3) 25 50 mcg PO DAILY 08/16/22 11/21/22 mcg (1,000 unit) capsule cyanocobalamin (vitamin B-12) 1,000 mcg IM .MONTHLY 08/16/22 11/20/22 1,000 mcg/mL injection solution furosemide 40 mg tablet 40 mg PO MOWEFR 08/16/22 11/21/22 tirzepatide 10 mg/0.5 mL 12.5 mg subcut .WEEKLY 08/16/22 11/21/22 subcutaneous pen injector (Avni) aspirin 81 mg chewable tablet 81 mg PO DAILY 11/21/22 11/21/22 (Aspirin Childrens) clopidogrel 75 mg tablet 75 mg PO DAILY 11/21/22 11/21/22 metoprolol succinate 50 mg 50 mg PO DAILY 11/21/22 11/21/22 tablet,extended release 24 hr omeprazole 40 mg capsule,delayed 40 mg PO HS 11/21/22 11/21/22 release orlistat 60 mg capsule (Chapin) 60 mg PO 3XD 11/21/22 11/21/22 oxycodone 5 mg tablet 5 - 10 mg PO Q4H PRN 11/21/22 11/21/22 pyridoxine (vitamin B6) 50 mg 50 mg PO DAILY 11/21/22 11/21/22 tablet (Vitamin B-6) tizanidine 2 mg tablet 2 mg PO QPM PRN 11/21/22 11/21/22 Allergies Allergy/AdvReac Type Severity Reaction Status Date / Time hydrocodone [From Vicodin] Allergy Rash Verified 08/15/22 13:01 gabapentin AdvReac disoriented Verified 08/15/22 13:01 adhesives Allergy red Uncoded 08/15/22 13:01 swelling [facility] Medical History (Updated 06/25/23 @ 23:34 by Corbin Park MD) Diabetes type 2, controlled ?E11.9 - Type 2 diabetes mellitus without complications (ICD-10) Surgical History (Updated 11/20/22 @ 22:53 by Zohra Duke RN) History of quadruple bypass ?Z95.1 - Presence of aortocoronary bypass graft (ICD-10) Social History What is your current living situation?: I presently have a place to live Problems where you live: no known problems Problems where you live details: NA In the past 12 months, utilities in danger of being shut off: no In past 12 months, lack of transportation kept you from medical appts, meetings, work, or getting things needed for daily living: no In the past 12 mos, have been you worried that your food would run out before you had money to buy more?: never true In the past 12 mos, the food you bought just didn't last and you didn't have money to buy more?: never true Highest level of school completed/degree received: some college, no degree Smoking Status: Never smoker Do you use any of these nicotine containing products: None Second hand tobacco smoke exposure: No How often do you have a drink containing alcohol: monthly or less Alcohol type: beer How many standard drinks containing alcohol do you have on a typical day: 1 or 2 How often do you have six or more drinks on one occasion: Never AUDIT-C Alcohol total score: 1 Non-prescribed substance use: denies use Caffeine: Yes How often does anyone, including family, friends and others, physically hurt you : never How often does anyone, including family, friends and others, insult or talk down to you: never How often does anyone, including family, friends and others, threaten you with harm: never How often does anyone, including family, friends and others, scream or curse at you: never service: No Exam Narrative: Exam Narrative: Constitutional: Appears well-developed and well-nourished. Alert and remembers me from a previous visit. Non-toxic appearing. HENT: Head: Atraumatic. No signs of injury. Nose: No nasal discharge. Mouth/Throat: Mucous membranes are moist. Pharynx is normal. Tonsils symmetric. Uvula midline. Airway patent. Eyes: Conjunctivae normal and EOM are normal. Pupils are equal, round, and reactive to light. Right eye exhibits no discharge. Left eye exhibits no discharge. No icterus. Neck: Normal range of motion. Neck supple. No adenopathy. No stridor. Cardiovascular: Normal rate and regular rhythm. No murmur heard. No murmurs, rubs, or gallops. Brisk capillary refill Pulmonary/Chest: Effort normal. No stridor. No respiratory distress. No w heezes.No rhonchi. No rales. No retractions. Abdominal: Soft. Bowel sounds are normal. No distension. No mass. There is no tenderness. There is no rebound and no guarding. Musculoskeletal: Normal range of motion. No edema. No tenderness. No deformity. Neurological: Alert. Normal strength. No cranial nerve deficit or sensory deficit. Coordination normal. GCS eye subscore is 4. GCS verbal subscore is 5. GCS motor subscore is 6. Skin: Skin is warm. No rash noted. She has a 1 x 3 mm wound on the tip of her left 5th toe (pinky toe). This really is a avulsion type injury where she has removed a small oval-shaped segment of skin. This is not really a suturable laceration. There is slow venous oozing from this wound. The wound penetrates through the epidermis into the dermis. No exposed bone. No nailbed component. Bleeding not controlled by direct pressure. Const: Vital Signs, click to edit/add: Vital Signs - 24 hr 06/25/23 22:22 Temperature 97.9 F Pulse Rate [Pulse Oximeter] 86 Respiratory Rate 16 Blood Pressure [Ri ght Upper Arm] 118/71 Pulse Oximetry 98 Oxygen Delivery Me thod Room Air Course Course ED Course: Patient arrived and was triaged to ER bed 7. I evaluated her there. Initial attempt to control bleeding is with with elevation and direct pressure but this was unsuccessful We then tried to apply Dermabond over the wound because it was minimally oozing. This initially seems successful and then she started losing under the Dermabond. This, too, was unsuccessful We then applied a small tourniquet got to the 5th toe. With this good hemostasis was achieved. Then, we were able to apply a dry layer of Dermabond over the wound. This was very successful in achieving hemostasis. We removed the tourniquet got. Good blood flow was restored to the toe and no recurrent bleeding was encountered. After this with the nurses apply a bulky gauze dressing to prevent any rubbing that might remove the Dermabond. Vital Signs Vital signs: Initial Vital Signs Temperature 97.9 F 06/25/23 22:22 Temperature Source Temporal Artery Scan 06/25/23 22:22 Pulse Rate 86 06/25/23 22:22 Respiratory Rate 16 06/25/23 22:22 Blood Pressure 118/71 06/25/23 22:22 Blood Pressure Mean 86 06/25/23 22:22 Blood Pressure Position Sitting 06/25/23 22:22 Pulse Oximetry 98 06/25/23 22:22 Oxygen Delivery Method Room Air 06/25/23 22:22 Vital Signs Temperature 97.9 F 06/25/23 22:22 Pulse Rate 86 06/25/23 22:22 Respiratory Rate 16 06/25/23 22:22 Blood Pressure 118/71 06/25/23 22:22 Pulse Oximetry 98 06/25/23 22:22 Oxygen Delivery Method Room Air 06/25/23 22:22 Temperature 97.9 F 06/25/23 22:22 Pulse Rate 86 06/25/23 22:22 Respiratory Rate 16 06/25/23 22:22 Blood Pressure 118/71 06/25/23 22:22 Pulse Oximetry 98 06/25/23 22:22 Oxygen Delivery Method Room Air 06/25/23 22:22 Medications Administered Medications: Discontinued Medications Generic Name Dose Route Start Last Admin Trade Name Anthony PRN Reason Stop Dose Admin Oxycodone HCl 10 mg 06/25/23 23:19 06/25/23 23:27 Oxycodone 5 Mg Tablet PO 06/25/23 23:20 10 mg ONCE ONE Administration Medical Decision Making MDM Narrative Medical decision making narrative: Findings and exam are consistent with an uncomplicated superficial injury to the distal tip of her left 5th toe which she inadvertently trigger today with a pair toenail clippers. This is really more of an avulsion of the skin rather than a laceration and is not suturable. Hemostasis was difficult to achieve because she is on Eliquis, aspirin, and Plavix. Fortunately we were able to control the bleeding after application of a digital tourniquet and then Dermabond. There is no evidence at this time to suggest any associated fracture or foreign body. There is no evidence to suggest tendon or arterial injury and patient is neurologically in tact. Indications to seek urgent reevaluation and signs of infection (including but not limited to increasing pain, redness, swelling, fevers, and drainage) were reviewed. Tetanus is up-to-date. This is a clean and non-contaminated wound in which prophylactic antibiotics are not indicated. An understanding of the discharge instructions and need for follow up were verbally confirmed. Discharge Plan Discharge Clinical Impression: Laceration of toe Patient Disposition: Home, Self-Care Condition: Stable Instructions: Laceration (DC), Skin Adhesive Care (ED) Additional Instructions: As we discussed, please keep your toe clean and dry. Try to keep a gauze dressing over your toe and this will protect the glue from getting rubbed off. If the toes starts bleeding again he should try to sit down keep your foot elevated at the level of your heart or above. Apply direct pressure or have your family apply pressure over your toe to help stop the bleeding. If the bleeding is not controlled after 10 minutes of direct pressure, apply extra gauze and come back to the ER. Prescriptions: No Action venlafaxine 150 mg capsule,extended release 24hr 150 mg PO DAILY nitroglycerin 0.4 mg tablet, sublingual 0.4 mg sublingual Q5M PRN Patient Comments: PLACE 1 TABLET UNDER TONGUE EVERY 5 MINUTES NEEDED FOR CHEST PAIN losartan 100 mg tablet 100 mg PO DAILY rosuvastatin 20 mg tablet 20 mg PO HS insulin glargine [Lantus Solostar U-100 Insulin] 100 unit/mL (3 mL) insulin pen 14 unit SUBCUT QAM Patient Comments: Jardiance 25 mg tablet 25 mg PO DAILY Eliquis 5 mg tablet 5 mg PO BID Hold Instructions: Resume on 08/21/22. Hold your eliquis until you are approved to resume by your primary care provider acetaminophen [Arthritis Pain Reliever] 650 mg tablet extended release 650 mg PO Q8H PRN cyanocobalamin (vitamin B-12) 1,000 mcg/mL solution 1,000 mcg IM .MONTHLY furosemide 40 mg tablet 40 mg PO MOWE Rx Instructions: REPORTS TAKING THREE TIMES A WEEK, ON SUNDAY, SUNDAY AND SUNDAY Mounjaro 10 mg/0.5 mL pen injector 12.5 mg subcut .WEEKLY cholecalciferol (vitamin D3) 25 mcg (1,000 unit) capsule 50 mcg PO DAILY aspirin [Aspirin Childrens] 81 mg tablet,chewable 81 mg PO DAILY clopidogrel 75 mg tablet 75 mg PO DAILY omeprazole 40 mg capsule,delayed release(DR/EC) 40 mg PO HS oxycodone 5 mg tablet 5 - 10 mg PO Q4H PRN pyridoxine (vitamin B6) [Vitamin B-6] 50 mg tablet 50 mg PO DAILY tizanidine 2 mg tablet 2 mg PO QPM PRN metoprolol succinate 50 mg tablet extended release 24 hr 50 mg PO DAILY Chapin 60 mg capsule 60 mg PO 3XD Follow Up/Referrals: Cherie Raza MD [Referring] - Stand Alone Forms: [facility] Info Instructions
[2023-06-25] MEDS: OXYCODONE 5 MG TABLET 10 MG PO (23:27)
== END 2023-06-25 23:59 | disposition home or self-care (01) ==
PROVIDERS: Emergency Provider Emergency Medicine; PCP Internal Medicine
DX: S91.115A Laceration without foreign body of left lesser toe(s) without damage to nail, initial encounter (principal); W26.9XXA Contact with unspecified sharp object(s), initial encounter
CPT/HCPCS: 12001; 99282; A9270

== ENCOUNTER 2023-09-26 18:40 | Emergency (ER) | payer MEDICARE, OTHER, SELFPAY ==
[2023-09-26 18:56] VITALS: BP 176/75; PULSE 59; RESP 18; TEMP 36.6; O2SAT 99; BMI 27.2
--- NOTE | 2023-09-26 19:24 | CRLHL7_ITS ---
For Patients: As a result of the Century Cures Act, medical imaging exams and procedure reports are released immediately into your electronic medical record. You may view this report before your referring provider. If you have questions, please contact your health care provider. INDICATION: Left upper arm swelling, query biceps tendon tear. TECHNIQUE: Ultrasound soft tissue limited. Sonographic images of the proximal left upper extremity were obtained using vilchis-scale and color Doppler images. COMPARISON: None. FINDINGS/IMPRESSION: In the region labeled left upper arm area of swelling, there is a 6.0 x 2.6 x 2.4 cm heterogeneous hypoechoic structure approximately 1.4 cm from the anterior skin surface, with no internal vascularity. Appearance is indeterminate however if there is history of trauma, this may reflect a large hematoma. Biceps tendon itself was not identified sonographically. Consider further evaluation with MRI. Dictated by Anibal Lowe MD @ 09/26/2023 9:35:42 PM (Electronically Signed)
--- NOTE | 2023-09-26 20:08 | ED_ITS ---
HPI - General Adult General Chief complaint: Extremity Pain/Injury, Upper Stated complaint: Fell on floor, left arm muscle swollen Time Seen by Provider: 09/26/23 19:06 Source: patient Mode of arrival: ambulatory Limitations: no limitations History of Present Illness HPI narrative: 77-year-old female coming in today complaining of arm pain and swelling. Patient states that she fell backwards today when she was bending over driving trash can. She states that she fell backwards landing on her buttocks, she is not sure how her arms landed, if she landed on the elbow worse landed on outstretched hand. But shortly after her fall she noticed that her left upper extremity started swelling quite a bit. She then goes on to tell me that she has had pain in that arm for the last 2 weeks. She has had decreased strength in that arm also, losing the ability to lift things and put them away and shelves. She states that the pain was located on the anterior elbow did not radiate. Patient does take Plavix and Eliquis and is concerned that she has a blood clot in that arm. Related Data Home Medications ?Medication ?Instructions ?Recorded ?Confirmed empagliflozin 25 mg tablet 25 mg PO DAILY 10/05/21 11/20/22 (Jardiance) insulin glargine 100 unit/mL (3 14 unit subcut QAM 10/05/21 11/21/22 mL) subcutaneous pen (Lantus Solostar U-100 Insulin) losartan 100 mg tablet 100 mg PO DAILY 10/05/21 11/21/22 nitroglycerin 0.4 mg sublingual 0.4 mg sublingual Q5M PRN 10/05/21 11/21/22 tablet rosuvastatin 20 mg tablet 20 mg PO HS 10/05/21 11/20/22 venlafaxine 150 mg 150 mg PO DAILY 10/05/21 11/20/22 capsule,extended release 24 hr apixaban 5 mg tablet (Eliquis) 5 mg PO BID 08/15/22 11/20/22 acetaminophen 650 mg 650 mg PO Q8H PRN 08/16/22 11/21/22 tablet,extended release (Arthritis Pain Reliever) cholecalciferol (vitamin D3) 25 50 mcg PO DAILY 08/16/22 11/21/22 mcg (1,000 unit) capsule cyanocobalamin (vitamin B-12) 1,000 mcg IM .MONTHLY 08/16/22 11/20/22 1,000 mcg/mL injection solution furosemide 40 mg tablet 40 mg PO MOWEFR 08/16/22 11/21/22 tirzepatide 10 mg/0.5 mL 12.5 mg subcut .WEEKLY 08/16/22 11/21/22 subcutaneous pen injector (Avni) aspirin 81 mg chewable tablet 81 mg PO DAILY 11/21/22 11/21/22 (Aspirin Childrens) clopidogrel 75 mg tablet 75 mg PO DAILY 11/21/22 11/21/22 metoprolol succinate 50 mg 50 mg PO DAILY 11/21/22 11/21/22 tablet,extended release 24 hr omeprazole 40 mg capsule,delayed 40 mg PO HS 11/21/22 11/21/22 release orlistat 60 mg capsule (Chapin) 60 mg PO 3XD 11/21/22 11/21/22 oxycodone 5 mg tablet 5 - 10 mg PO Q4H PRN 11/21/22 11/21/22 pyridoxine (vitamin B6) 50 mg 50 mg PO DAILY 11/21/22 11/21/22 tablet (Vitamin B-6) tizanidine 2 mg tablet 2 mg PO QPM PRN 11/21/22 11/21/22 Allergies Allergy/AdvReac Type Severity Reaction Status Date / Time hydrocodone [From Vicodin] Allergy Rash Verified 08/15/22 13:01 gabapentin AdvReac disoriented Verified 08/15/22 13:01 adhesives Allergy red Uncoded 08/15/22 13:01 swelling Review of Systems Status of ROS: Reports: 10 or more systems reviewed and unremarkable except as noted in History and below [facility] Medical History Diabetes type 2, controlled ?E11.9 - Type 2 diabetes mellitus without complications (ICD-10) Surgical History History of quadruple bypass ?Z95.1 - Presence of aortocoronary bypass graft (ICD-10) Social History What is your current living situation?: I presently have a place to live Problems where you live: no known problems Problems where you live details: NA In the past 12 months, utilities in danger of being shut off: no In past 12 months, lack of transportation kept you from medical appts, meetings, work, or getting things needed for daily living: no In the past 12 mos, have been you worried that your food would run out before you had money to buy more?: never true In the past 12 mos, the food you bought just didn't last and you didn't have money to buy more?: never true Highest level of school completed/degree received: some college, no degree Smoking Status: Never smoker Do you use any of these nicotine containing products: None Second hand tobacco smoke exposure: No How often do you have a drink containing alcohol: monthly or less Alcohol type: beer How many standard drinks containing alcohol do you have on a typical day: 1 or 2 How often do you have six or more drinks on one occasion: Never AUDIT-C Alcohol total score: 1 Non-prescribed substance use: denies use Caffeine: Yes How often does anyone, including family, friends and others, physically hurt you : never How often does anyone, including family, friends and others, insult or talk down to you: never How often does anyone, including family, friends and others, threaten you with harm: never How often does anyone, including family, friends and others, scream or curse at you: never service: No Exam Narrative: Exam Narrative: Well-nourished well-developed patient in no acute distress. Alert and oriented. Answers questions appropriately. Mood and affect are appropriate. Thoughts are goal oriented and rational. No tangential or magical thinking noted. Patient speaks in full sentences without needing to catch her breath. HEENT: Normocephalic atraumatic. Extraocular muscles are intact. Conjunctivae are moist without any icterus noted. Moist mucous membranes. Extremities: Patient's left upper arm has an obvious deformity she where the biceps should be. There is a bulge there right in the center of the upper arm. The bulge is tender, she has no tenderness to palpation on the anterior to cu bital fossa were at the shoulder. She has scattered bruising of the upper extremity from which she says were her vitamin injections. I cannot elicit tenderness at the bicipital groove. The biceps squeeze test does not elicit supination, however, does not elicit supination on the contralateral arm either. It is possible to hook the distal biceps tendon on examination. Const: Vital Signs, click to edit/add: Vital Signs - 24 hr 09/26/23 18:56 Temperature 97.9 F Pulse Rate [Right Pulse Oximeter] 59 L Respiratory Rate 18 Blood Pressure [Ri ght Upper Arm] 176/75 H Pulse Oximetry 99 Oxygen Delivery Me thod Room Air Course Course ED Course: Given the ambiguity of her physical exam, we did proceed with ultrasound. This is positive for an indeterminate mass, potential hematoma. Unfortunately, tendons are not visualized. Vital Signs Vital signs: Initial Vital Signs Temperature 97.9 F 09/26/23 18:56 Temperature Source Temporal Artery Scan 09/26/23 18:56 Pulse Rate 59 L 09/26/23 18:56 Respiratory Rate 18 09/26/23 18:56 Blood Pressure 176/75 H 09/26/23 18:56 Blood Pressure Mean 108 H 09/26/23 18:56 Blood Pressure Position Sitting 09/26/23 18:56 Pulse Oximetry 99 09/26/23 18:56 Oxygen Delivery Method Room Air 09/26/23 18:56 Vital Signs Temperature 97.9 F 09/26/23 18:56 Pulse Rate 59 L 09/26/23 18:56 Respiratory Rate 18 09/26/23 18:56 Blood Pressure 176/75 H 09/26/23 18:56 Pulse Oximetry 99 09/26/23 18:56 Oxygen Delivery Method Room Air 09/26/23 18:56 Temperature 97.9 F 09/26/23 18:56 Pulse Rate 59 L 09/26/23 18:56 Respiratory Rate 18 09/26/23 18:56 Blood Pressure 176/75 H 09/26/23 18:56 Pulse Oximetry 99 09/26/23 18:56 Oxygen Delivery Method Room Air 09/26/23 18:56 Medical Decision Making MDM Narrative Medical decision making narrative: 77-year-old female with arm pain, I do favor hematoma at this time given her tendons do appear to be intact on examination and she has no proximal or distal tenderness. We wrapped the arm in an Terell wrap for compression. She will follow up with her primary care provider in 1-2 days to make sure that is not increasing given that she is on anticoagulants. However during her stay in the ER there was no change in the size of the hematoma and so I do not think this will be an issue. We discussed the possible need for an MRI if she feels that her strength is not returning. We discuss heat. We discussed reasons for follow-up in the ED. Patient was comfortable with all of our discussions and had no other questions. Imaging Data Upper extremity ultrasound: Attestation: I have reviewed the pertinent imaging results. Radiologist's impression: TECHNIQUE: Ultrasound soft tissue limited. Sonographic images of the proximal left upper extremity were obtained using vilchis-scale and color Doppler images. COMPARISON: None. FINDINGS/IMPRESSION: In the region labeled left upper arm area of swelling, there is a 6.0 x 2.6 x 2.4 cm heterogeneous hypoechoic structure approximately 1.4 cm from the anterior skin surface, with no internal vascularity. Appearance is indeterminate however if there is history of trauma, this may reflect a large hematoma. Biceps tendon itself was not identified sonographically. Consider further evaluation with MRI. Discharge Plan Discharge Clinical Impression: Hematoma Patient Disposition: Home, Self-Care Condition: Stable Additional Instructions: Keep arm wrapped throughout the day. Okay to remove wrap to shower. Recommend using heat on the swollen area few times per day, 20 minutes at a time. Do not apply heat directly to the skin. Avoid activities that cause pain. Recommend you follow-up with your primary care provider in 24-48 hours. Prescriptions: No Action venlafaxine 150 mg capsule,extended release 24hr 150 mg PO DAILY nitroglycerin 0.4 mg tablet, sublingual 0.4 mg sublingual Q5M PRN Patient Comments: PLACE 1 TABLET UNDER TONGUE EVERY 5 MINUTES NEEDED FOR CHEST PAIN losartan 100 mg tablet 100 mg PO DAILY rosuvastatin 20 mg tablet 20 mg PO HS insulin glargine [Lantus Solostar U-100 Insulin] 100 unit/mL (3 mL) insulin pen 14 unit SUBCUT QAM Patient Comments: Jardiance 25 mg tablet 25 mg PO DAILY Eliquis 5 mg tablet 5 mg PO BID Hold Instructions: Resume on 08/21/22. Hold your eliquis until you are approved to resume by your primary care provider acetaminophen [Arthritis Pain Reliever] 650 mg tablet extended release 650 mg PO Q8H PRN cyanocobalamin (vitamin B-12) 1,000 mcg/mL solution 1,000 mcg IM .MONTHLY furosemide 40 mg tablet 40 mg PO MOWEFR Rx Instructions: REPORTS TAKING THREE TIMES A WEEK, ON SUNDAY, SUNDAY AND SUNDAY Mounjaro 10 mg/0.5 mL pen injector 12.5 mg subcut .WEEKLY cholecalciferol (vitamin D3) 25 mcg (1,000 unit) capsule 50 mcg PO DAILY aspirin [Aspirin Childrens] 81 mg tablet,chewable 81 mg PO DAILY clopidogrel 75 mg tablet 75 mg PO DAILY omeprazole 40 mg capsule,delayed release(DR/EC) 40 mg PO HS oxycodone 5 mg tablet 5 - 10 mg PO Q4H PRN pyridoxine (vitamin B6) [Vitamin B-6] 50 mg tablet 50 mg PO DAILY tizanidine 2 mg tablet 2 mg PO QPM PRN metoprolol succinate 50 mg tablet extended release 24 hr 50 mg PO DAILY Chapin 60 mg capsule 60 mg PO 3XD Follow Up/Referrals: Abby Reveles PA-C [Primary Care Provider] - Stand Alone Forms: [facility] Info Instructions
== END 2023-09-26 22:00 | disposition home or self-care (01) ==
PROVIDERS: Emergency Provider Family Medicine; PCP Internal Medicine
DX: S40.022A Contusion of left upper arm, initial encounter (principal); W18.30XA Fall on same level, unspecified, initial encounter
CPT/HCPCS: 76882; 99283; 99284

== ENCOUNTER 2023-09-27 00:08 | Observation (INO) | payer MEDICARE, OTHER, SELFPAY ==
[2023-09-27] VITALS (14 sets, daily range): BP systolic 138–191; BP diastolic 70–90; PULSE 54–69; RESP 16–18; TEMP 36.1–36.7; O2SAT 93–99; BMI 27.2; BMI 28.3
--- NOTE | 2023-09-27 00:33 | CRLHL7_ITS ---
For Patients: As a result of the Century Cures Act, medical imaging exams and procedure reports are released immediately into your electronic medical record. You may view this report before your referring provider. If you have questions, please contact your health care provider. Indication: hematoma vs active bleed, on anticoagulants Technique: CT of the left humerus/elbow with 70 cc of Isovue 370 IV contrast Comparison: None. Findings: There is a large hematoma within the anterior upper arm within or surrounding the biceps muscle. There is a blush of contrast within the upper aspect of the hematoma, series 3, images 69-139, compatible with active extravasation. Questionable cortical discontinuity of the radial neck could represent a nondisplaced fracture. There is no definitive elbow joint effusion. Mild degenerative changes about the elbow joint. The soft tissues about the elbow itself are unremarkable. No aggressive osseous lesion. Impression: 1. Large hematoma within the anterior upper arm within or surrounding the biceps muscle with evidence of active extravasation. 2. Questionable nondisplaced radial neck fracture. Consider dedicated elbow radiographs for further evaluation. Please note that all CT scans at this facility use dose modulation, iterative reconstruction, and/or weight-based dosing when appropriate to reduce radiation dose to as low as reasonably achievable. Dictated by Corbin Bui MD @ 09/27/2023 1:46:57 AM (Electronically Signed)
--- NOTE | 2023-09-27 00:39 | ED_ITS ---
HPI - General Adult General Chief complaint: Extremity Pain/Injury, Upper Stated complaint: L arm bleed Time Seen by Provider: 09/27/23 00:23 Source: patient Mode of arrival: ambulatory Limitations: no limitations History of Present Illness HPI narrative: Year-old female presents the emergency department a few hours after recent discharge from the ED. She was evaluated for pain and swelling in her left arm and was diagnosed by ultrasound with what appeared to be a hematoma after a minor injury this afternoon. The story is a bit difficult to follow as she reported to the previous physician that she had been having pain in the antecubital fossa for a couple of weeks.. She is anticoagulated on Eliquis and Plavix. Patient called back shortly after she got home and said that the pain was worsening and now she has bruising. She said that her thought that the swelling was increasing but patient herself was unsure. She took 1 of her oxycodone tablets that she has for unrelated reasons for her back and reports that it is not adequately helping her pain. The previous physician spoke with a provider at [facility] though she did not relate to me who it was and was told that the patient may need anticoagulant reversal and a CT angio of the arm. We do not perform CT angio of the arm in our facility. No new trauma since hospital discharge. No fever, no difficulty using the hand. She can still been the elbow and the shoulder with no difficulty. Pain is increased with movement and palpation. Past medical history is pretty extensive she has coronary artery disease and it sounds like she had some complications from bypass surgery which is why she is anticoagulated on both Eliquis and Plavix. She did not clearly answer my question when I asked about prior DVT or AFib. She also has diabetes, hypertension and anxiety. She has chronic pain in her back for which she takes 20 mg of oxycodone total daily. Previous ED note and studies are reviewed. ROS is notable for the arm pain as described above. Denies any other generalized, cardiac, pulmonary, GI, other musculoskeletal, neurological or skin changes. Related Data Home Medications ?Medication ?Instructions ?Recorded ?Confirmed empagliflozin 25 mg tablet 25 mg PO DAILY 10/05/21 11/20/22 (Jardiance) insulin glargine 100 unit/mL (3 14 unit subcut QAM 10/05/21 11/21/22 mL) subcutaneous pen (Lantus Solostar U-100 Insulin) losartan 100 mg tablet 100 mg PO DAILY 10/05/21 11/21/22 nitroglycerin 0.4 mg sublingual 0.4 mg sublingual Q5M PRN 10/05/21 11/21/22 tablet rosuvastatin 20 mg tablet 20 mg PO HS 10/05/21 11/20/22 venlafaxine 150 mg 150 mg PO DAILY 10/05/21 11/20/22 capsule,extended release 24 hr apixaban 5 mg tablet (Eliquis) 5 mg PO BID 08/15/22 11/20/22 acetaminophen 650 mg 650 mg PO Q8H PRN 08/16/22 11/21/22 tablet,extended release (Arthritis Pain Reliever) cholecalciferol (vitamin D3) 25 50 mcg PO DAILY 08/16/22 11/21/22 mcg (1,000 unit) capsule cyanocobalamin (vitamin B-12) 1,000 mcg IM .MONTHLY 08/16/22 11/20/22 1,000 mcg/mL injection solution furosemide 40 mg tablet 40 mg PO MOWEFR 08/16/22 11/21/22 tirzepatide 10 mg/0.5 mL 12.5 mg subcut .WEEKLY 08/16/22 11/21/22 subcutaneous pen injector (Avni) aspirin 81 mg chewable tablet 81 mg PO DAILY 11/21/22 11/21/22 (Aspirin Childrens) clopidogrel 75 mg tablet 75 mg PO DAILY 11/21/22 11/21/22 metoprolol succinate 50 mg 50 mg PO DAILY 11/21/22 11/21/22 tablet,extended release 24 hr omeprazole 40 mg capsule,delayed 40 mg PO HS 11/21/22 11/21/22 release orlistat 60 mg capsule (Chapin) 60 mg PO 3XD 11/21/22 11/21/22 oxycodone 5 mg tablet 5 - 10 mg PO Q4H PRN 11/21/22 11/21/22 pyridoxine (vitamin B6) 50 mg 50 mg PO DAILY 11/21/22 11/21/22 tablet (Vitamin B-6) tizanidine 2 mg tablet 2 mg PO QPM PRN 11/21/22 11/21/22 Allergies Allergy/AdvReac Type Severity Reaction Status Date / Time hydrocodone [From Vicodin] Allergy Rash Verified 09/27/23 00:16 gabapentin AdvReac disoriented Verified 09/27/23 00:16 adhesives Allergy red Uncoded 08/15/22 13:01 [facility] Medical History Diabetes type 2, controlled ?E11.9 - Type 2 diabetes mellitus without complications (ICD-10) Surgical History History of quadruple bypass ?Z95.1 - Presence of aortocoronary bypass graft (ICD-10) Social History What is your current living situation?: I presently have a place to live Problems where you live: no known problems Problems where you live details: NA In the past 12 months, utilities in danger of being shut off: no In past 12 months, lack of transportation kept you from medical appts, meetings, work, or getting things needed for daily living: no In the past 12 mos, have been you worried that your food would run out before you had money to buy more?: never true In the past 12 mos, the food you bought just didn't last and you didn't have money to buy more?: never true Highest level of school completed/degree received: some college, no degree Smoking Status: Never smoker Do you use any of these nicotine containing products: None Second hand tobacco smoke exposure: No How often do you have a drink containing alcohol: monthly or less Alcohol type: beer How many standard drinks containing alcohol do you have on a typical day: 1 or 2 How often do you have six or more drinks on one occasion: Never AUDIT-C Alcohol total score: 1 Non-prescribed substance use: denies use Caffeine: Yes How often does anyone, including family, friends and others, physically hurt you : never How often does anyone, including family, friends and others, insult or talk down to you: never How often does anyone, including family, friends and others, threaten you with harm: never How often does anyone, including family, friends and others, scream or curse at you: never service: No Exam Const: Vital Signs, click to edit/add: Vital Signs - 24 hr 09/27/23 00:14 09/27/23 00:47 09/27/23 00:48 Temperature 98.1 F 98.1 F Pulse Rate [Right Pulse Oximeter] 58 L Respiratory Rate 18 Blood Pressure [Ri ght Upper Arm] 191/86 H Pulse Oximetry 99 97 Oxygen Delivery Me thod Room Air Documenting provider has reviewed patient's vital signs: yes Common normals: no apparent distress and alert Other: Mildly hard of hearing, explanations are a bit tangental. HENMT: Common normals: normocephalic and oropharynx normal Head and scalp: normocephalic Eye: Common normals: conjunctivae normal General eye: normal appearance of both eyes Conjunctiva: conjunctiva(e) normal Neck & C-Spine: General: normal visual inspection Resp: Common normals: normal respiratory effort, no use of accessory muscles and clear to auscultation bilaterally Effort & inspection: able to speak in complete sentences Auscultation: clear to auscultation bilaterally Cardio: Common normals: regular rate, regular rhythm, S1 normal heart sound, S2 normal heart sound and no murmurs Rate: regular rate Rhythm: regular rhythm Heart sounds: S1 normal and S2 normal Extremity: Other: Left hand and wrist with normal range of motion. Normal strength and normal capillary refill in all fingers. Normal radial pulses. Both left elbow and shoulder have normal range of motion. She has tenderness to palpation of the biceps and then does appear to have subcutaneous fullness in the distal quarter of the humerus consistent with the known hematoma. It is also tender to palpation. Size does seem approximately similar to what was described on the ultrasound but I was not the 1 to perform the previous exam. There is some mild bruising of the skin. Because of the hematoma, it is difficult to tell if there is a defect in the biceps tendon insertion. Right arm moves freely with no perceived obvious deficits. Neuro: Sensorium/orientation: alert Speech: speech normal Psych: Appearance: grossly normal Insight: fair Judgement: fair Skin: Narrative: Mild bruising to left distal biceps area, no broken skin or lacerations. Course Course ED Course: 77-year-old female with left bicep area pain following mild injury at home. Differential diagnosis including biceps tear verses pain from persistent bleeding. The biggest concern here is with active bleeding. There does not appear to be any sign of compartment syndrome. She has excellent pulses. I am not certain that she needs reversal agents at this time. They are a significant cost and there does not seem to be any evidence of life-threatening bleeding at this time. Counseled patient that an MRI would be a better study and we do not have the ability to do a CT angio of the arm. I can do a CT with contrast overnight and this may answer our question. If it does not adequately answer question she will need to stay for a MRI. Will give oxycodone 10 mg p.o. and Tylenol. She did take 10 mg of oxycodone so this is double her typical home dose. I am not going to give IV pain medicine as this is would not be a treatment option for her to have at home and I think it is important that we figure out what it will take to get her pain under appropriate control and have a method that would be reproducible for her to have at home as she did come back to the ED just a couple of hours after leaving. Need basic labs to check CBC and creatinine as well as electrolytes. These are ordered and pending. Reevaluation(s) Time of Reevaluation #1: 02:55 Reevaluation #1: After initial CT findings, I attempted to contact [facility]. There was initial push back and the transfer center had declined to let me speak with vascular team. I did have to call again in attempt to speak to the ED provider but was ultimately then able to speak with the vascular team web content & social media manager. I spoke with Dr. Cornell and the recommendations are as follows: Do not give reversal agents for this small bleed. 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 Both the Plavix and Eliquis should be held for the next few days. She should be admitted for observation to have serial ultrasound measurements of the hematoma. She has already taken her Eliquis and Plavix tonight. We should put a compression wrap over the hematoma. This of course is promptly done. Follow-up ultrasound in the daylight hours and then potentially again in the late afternoon or early evening to check to see if there is still persistent bleeding. If there is persistent bleeding, we should call male back and requests transfer and Interventional Radiology. These findings were discussed with patient. She is citing concerns with pain control. I think this is going to be difficult to get under control with her. Please note that we see her freely moving the arm and bending it at will when she is distracted. She was given an additional 10 mg of oxycodone p.o. x1 to go with the 10 mg she had already taken prior to coming to the ED. I would discourage IV narcotics in this patient. She was also given Tylenol. I spoke with the hospitalist to is understandably quite hesitant to accept admission when it seems as though she could get an outpatient ultrasound in the morning but I have significant concerns with her ability to appropriately follow-up and for this to be managed in a timely fashion if she is discharged from the ED and it was the specific recommendation of the vascular team for her to be admitted for observation. He did hesitantly except admission. Diagnosis acute vascular hemorrhage of left upper extremity. Vital Signs Vital signs: Initial Vital Signs Temperature 98.1 F 09/27/23 00:14 Temperature Source Temporal Artery Scan 09/27/23 00:14 Pulse Rate 58 L 09/27/23 00:14 Respiratory Rate 18 09/27/23 00:14 Blood Pressure 191/86 H 09/27/23 00:14 Blood Pressure Mean 121 H 09/27/23 00:14 Blood Pressure Position Sitting 09/27/23 00:14 Pulse Oximetry 99 09/27/23 00:14 Oxygen Delivery Method Room Air 09/27/23 00:14 Vital Signs Temperature 98.1 F 09/27/23 00:14 Pulse Rate 58 L 09/27/23 00:14 Respiratory Rate 18 09/27/23 00:14 Blood Pressure 191/86 H 09/27/23 00:14 Pulse Oximetry 99 09/27/23 00:14 Oxygen Delivery Method Room Air 09/27/23 00:14 Temperature 98.1 F 09/27/23 00:47 Pulse Rate 58 L 09/27/23 00:14 Respiratory Rate 18 09/27/23 00:14 Blood Pressure 191/86 H 09/27/23 00:14 Pulse Oximetry 97 09/27/23 00:48 Oxygen Delivery Method Room Air 09/27/23 00:14 Medications Administered Medications: Discontinued Medications Generic Name Dose Route Start Last Admin Trade Name Freq PRN Reason Stop Dose Admin Acetaminophen 1,000 mg 09/27/23 00:33 09/27/23 00:47 Acetaminophen 500 Mg Tablet PO 09/27/23 00:34 1,000 mg ONCE ONE Administration Oxycodone HCl 10 mg 09/27/23 00:33 09/27/23 00:47 Oxycodone 5 Mg Tablet PO 09/27/23 00:34 10 mg ONCE ONE Administration Medical Decision Making Lab Data Lab results reviewed: Yes I reviewed the patient's lab results Lab results narrative: Hemoglobin is slightly down from baseline but not severely. No leukocytosis. Creatinine stable. A CPK level has been added per hospitalist request. Labs: Lab Results 09/27/23 09/27/23 09/27/23 Range/Units 00:48 00:49 03:01 WBC 7.21 (4.50-11.00) K/uL RBC 3.53 L (4.00-5.20) m/uL Hgb 11.1 L (12.0-16.0) gm/dL Hct 35.2 (33.0-51.0) % MCV 100 (80-100) fL MCH 31 (26-34) pg MCHC 32 (32-36) gm/dL RDW Coeff of Felix 13.8 (11.5-15.5) % Plt Count 142 (140-440) K/uL Neut % (Auto) 66.9 (42.0-72.0) % Lymph % (Auto) 21.8 (20-44) % [place] % (Auto) 7.5 (0.0-11.0) % Eos % (Auto) 2.4 (0.0-7.0) % Baso % (Auto) 0.4 (0.0-3.0) % Neut # (Auto) 4.83 (1.7-7.0) K/uL Lymph # (Auto) 1.57 (0.90-2.90) K/uL [place] # (Auto) 0.50 (0.00-0.90) K/UL Eos # (Auto) 0.17 (0.00-0.50) K/uL Baso # (Auto) 0.03 (0.00-0.30) K/uL Abs Immat Gran (auto) 0.07 (0.00-0.30) K/uL Imm/Tot Granulo (auto) 1.0 % Sodium 140 (135-149) mmol/L Potassium 3.9 (3.6-5.1) mmol/L Chloride 107 (96-114) mmol/L Carbon Dioxide 27 (20-32) mmol/L Anion Gap 6 L (7-15) mEq/L BUN 20 (7-30) mg/dL Creatinine 1.0 (0.5-1.5) mg/dL Estimated Creat Clear 34.42 Estimated GFR 57 ml/min Glucose 133 H (60-115) mg/dL Calcium 9.5 (8.4-10.6) mg/dL Lab Acknowledgement Test Added POC Creatinine 1.2 (0.6-1.3) mg/dl Imaging Data CT with contrast left upper extremity: Attestation: I have reviewed the pertinent imaging results. My impression: Visible hematoma and it does look like there is some leaking contrast. Difficult to evaluate the biceps tendon appropriately. Radiologist's impression: Impression: 1. Large hematoma within the anterior upper arm within or surrounding the biceps muscle with evidence of active extravasation. 2. Questionable nondisplaced radial neck fracture. Consider dedicated elbow radiographs for further evaluation. Elbow x-ray: Attestation: I have reviewed the pertinent imaging results. My impression: Normal left elbow x-ray Radiologist's impression: Findings/Impression: No acute fracture appreciated. Dictated by Aj Farley MD @ 09/27/2023 2:28:11 AM Discharge Plan Discharge Clinical Impression: Active bleeding, Hematoma Patient Disposition: Admitted As Observation
[2023-09-27] MEDS: ACETAMINOPHEN 500 MG TABLET 1000 MG PO (00:47)
[2023-09-27] MEDS: OXYCODONE 5 MG TABLET 10 MG PO ×2 (00:47→09:34)
[2023-09-27 00:53] LABS: Creatinine, Point-of-Care* 1.2 mg/dl (0.6-1.3)
[2023-09-27 00:55] LABS: Basophils Absolute Auto 0.03 K/uL (0.00-0.30); Basophils Percent Auto 0.4 % (0.0-3.0); Eosinophils Absolute Auto 0.17 K/uL (0.00-0.50); Eosinophils Percent Auto 2.4 % (0.0-7.0); Hematocrit 35.2 % (33.0-51.0); Hemoglobin* 11.1 gm/dL (12.0-16.0); Immature Granulocytes Abs Auto 0.07 K/uL (0.00-0.30); Lymphocytes Absolute Auto 1.57 K/uL (0.90-2.90); Lymphocytes Percent Auto 21.8 % (20-44); Mean Corpuscular HGB Conc 32 gm/dL (32-36); Mean Corpuscular Hemoglobin 31 pg (26-34); Mean Corpuscular Volume 100 fL (80-100); Monocytes Percent Auto 7.5 % (0.0-11.0); Neutrophils Absolute Auto 4.83 K/uL (1.7-7.0); Neutrophils Percent Auto 66.9 % (42.0-72.0); Platelet Count* 142 K/uL (140-440); RDW Coefficient of Variation % 13.8 % (11.5-15.5); Red Blood Count 3.53 m/uL (4.00-5.20); White Blood Count* 7.21 K/uL (4.50-11.00)
[2023-09-27 00:57] LABS: Slide Review Reflex No
[2023-09-27 01:07] LABS: Chloride* 107 mmol/L (96-114); Potassium* 3.9 mmol/L (3.6-5.1); Sodium* 140 mmol/L (135-149)
[2023-09-27 01:10] LABS: Anion Gap 6 mEq/L (7-15); Blood Urea Nitrogen* 20 mg/dL (7-30); Carbon Dioxide* 27 mmol/L (20-32); Est. Creatinine Clearance* 34.42; Estimated Glomerular Filt Rate 57 ml/min; Glucose* 133 mg/dL (60-115)
[2023-09-27 01:11] LABS: Calcium* 9.5 mg/dL (8.4-10.6)
--- NOTE | 2023-09-27 02:04 | CRLHL7_ITS ---
For Patients: As a result of the Cures Act, medical imaging exams and procedure reports are released immediately into your electronic medical record. You may view this report before your referring provider. If you have questions, please contact your health care provider. Indication: Question fracture Technique: Three views of the left elbow Comparison: Same day CT Findings/Impression: No acute fracture appreciated. Dictated by Aj Farley MD @ 09/27/2023 2:28:11 AM (Electronically Signed)
[2023-09-27 03:12] LABS: Creatine Kinase* 38 U/L (41-117)
--- NOTE | 2023-09-27 05:00 | W.PM.THH&P_ITS ---
Telehealth- H&P: HPI History of Present Illness Date Seen: 09/27/23 Chief complaint: L Arm Hematoma Narrative: Marah Zepeda is seen as an Interactive Telehealth visit. Marah Zepeda is a 77 year old male who presented to the emergency room after suffering a fall and worsening left arm pain. Marah has a significant past medical history of paroxysmal atrial fibrillation anticoagulated on Eliquis, coronary artery disease and peripheral vascular disease with history of coronary artery bypass and stenting maintained on Plavix and aspirin, chronic low back pain, diabetes mellitus type 2, and chronic kidney disease stage III. 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 She denied hitting her head or having any loss of consciousness, but she continued to have increasing pain in her left arm and presented to the emergency room where an ultrasound did in fact show a hematoma. There was concern about the possibility of a developing compartment syndrome with her multiple medications for anticoagulation and apparently vascular surgery was called who recommended admitting the patient for ongoing evaluation and observation with serial ultrasounds to be done. At the time I am seeing Marah, she does confirm the above history. She states that she can move her arm but it is somewhat painful in the area of her left biceps. She does have a history of both GI bleeding and a splenic infarct in the past but has not had any problems with blood loss recently. She does have chronic low back pain and is currently concerned about pain control with the pain in her left upper arm. Again, she can move her arm, fingers, wrist and elbow without significant difficulty. She otherwise denies any other acute complaints or problems at the time I am seeing her. Review of Systems Status of ROS: Reports: 10 or more systems reviewed and unremarkable except as noted in History and below [facility] Medical History Diabetes type 2, controlled ?E11.9 - Type 2 diabetes mellitus without complications (ICD-10) Surgical History History of quadruple bypass ?Z95.1 - Presence of aortocoronary bypass graft (ICD-10) Social History What is your current living situation?: I presently have a place to live Problems where you live: no known problems Problems where you live details: NA In the past 12 months, utilities in danger of being shut off: no In past 12 months, lack of transportation kept you from medical appts, meetings, work, or getting things needed for daily living: no In the past 12 mos, have been you worried that your food would run out before you had money to buy more?: never true In the past 12 mos, the food you bought just didn't last and you didn't have money to buy more?: never true Highest level of school completed/degree received: some college, no degree Smoking Status: Never smoker Do you use any of these nicotine containing products: None Second hand tobacco smoke exposure: No How often do you have a drink containing alcohol: monthly or less Alcohol type: beer How many standard drinks containing alcohol do you have on a typical day: 1 or 2 How often do you have six or more drinks on one occasion: Never AUDIT-C Alcohol total score: 1 Non-prescribed substance use: denies use Caffeine: Yes How often does anyone, including family, friends and others, physically hurt you : never How often does anyone, including family, friends and others, insult or talk down to you: never How often does anyone, including family, friends and others, threaten you with harm: never How often does anyone, including family, friends and others, scream or curse at you: never service: No Meds Home Medications and Allergies Home Medications ?Medication ?Instructions ?Recorded ?Confirmed ?Type empagliflozin 25 mg tablet 25 mg PO DAILY 10/05/21 11/20/22 History (Jardiance) insulin glargine 100 unit/mL (3 14 unit subcut QAM 10/05/21 11/21/22 History mL) subcutaneous pen (Lantus Solostar U-100 Insulin) losartan 100 mg tablet 100 mg PO DAILY 10/05/21 11/21/22 History nitroglycerin 0.4 mg sublingual 0.4 mg sublingual Q5M PRN 10/05/21 11/21/22 History tablet rosuvastatin 20 mg tablet 20 mg PO HS 10/05/21 11/20/22 History venlafaxine 150 mg 150 mg PO DAILY 10/05/21 11/20/22 History capsule,extended release 24 hr apixaban 5 mg tablet (Eliquis) 5 mg PO BID 08/15/22 11/20/22 History acetaminophen 650 mg 650 mg PO Q8H PRN 08/16/22 11/21/22 History tablet,extended release (Arthritis Pain Reliever) cholecalciferol (vitamin D3) 25 50 mcg PO DAILY 08/16/22 11/21/22 History mcg (1,000 unit) capsule cyanocobalamin (vitamin B-12) 1,000 mcg IM .MONTHLY 08/16/22 11/20/22 History 1,000 mcg/mL injection solution furosemide 40 mg tablet 40 mg PO MOWEFR 08/16/22 11/21/22 History tirzepatide 10 mg/0.5 mL 12.5 mg subcut .WEEKLY 08/16/22 11/21/22 History subcutaneous pen injector (Avni) aspirin 81 mg chewable tablet 81 mg PO DAILY 11/21/22 11/21/22 History (Aspirin Childrens) clopidogrel 75 mg tablet 75 mg PO DAILY 11/21/22 11/21/22 History metoprolol succinate 50 mg 50 mg PO DAILY 11/21/22 11/21/22 History tablet,extended release 24 hr omeprazole 40 mg capsule,delayed 40 mg PO HS 11/21/22 11/21/22 History release orlistat 60 mg capsule (Chapin) 60 mg PO 3XD 11/21/22 11/21/22 History oxycodone 5 mg tablet 5 - 10 mg PO Q4H PRN 11/21/22 11/21/22 History pyridoxine (vitamin B6) 50 mg 50 mg PO DAILY 11/21/22 11/21/22 History tablet (Vitamin B-6) tizanidine 2 mg tablet 2 mg PO QPM PRN 11/21/22 11/21/22 History Allergies Allergy/AdvReac Type Severity Reaction Status Date / Time hydrocodone [From Vicodin] Allergy Rash Verified 09/27/23 00:16 gabapentin AdvReac disoriented Verified 09/27/23 00:16 adhesives Allergy red Uncoded 08/15/22 13:01 swelling Exam Narrative Exam Narrative: Physical Exam GENERAL: vital signs reviewed, well developed and nourished, in no distress HEENT: pupils are equal round and reactive to light, extraocular movements are grossly within normal limits and oral mucosa is moist. NECK: Supple without lymphadenopathy or thyromegaly according to nursing staff examination observation HEART: Regular rate and rhythm without any rubs, murmurs or gallops. LUNGS: Clear to auscultation bilaterally with good air movement throughout ABDOMEN: Observation from nurse assisted exam, abdomen appears soft, nontender, and nondistended with Positive bowel sounds noted. EXTREMITIES: Strength and sensation is observed to be grossly within normal limits in the upper and lower extremities. No focal strength deficit is observed. She does have a hematoma over the left biceps area just above the antecubital space. Full range of motion is noted without significant pain currently. She also has bruising on her right buttock and left knee. SKIN: Observed warm and dry with color normal NEURO: Alert, awake and oriented ?3. Answers all questions appropriately. No focal neuro deficits are noted. PSYCH: Affect normal Const Vital Signs, click to edit/add: Vital Signs - 24 hr 09/27/23 00:14 09/27/23 00:16 09/27/23 00:17 Temperature 98.1 F Pulse Rate [Right Pulse Oximeter] 58 L Respiratory Rate 18 Blood Pressure [Right Upper Arm] 191/86 H Pulse Oximetry 99 98 98 Oxygen Delivery Method Room Air 09/27/23 00:30 09/27/23 00:47 09/27/23 00:48 Temperature 98.1 F Pulse Rate [Right Pulse Oximeter] Respiratory Rate Blood Pressure [Right Upper Arm] Pulse Oximetry 98 97 Oxygen Delivery Method 09/27/23 01:16 09/27/23 01:30 09/27/23 02:00 Temperature Pulse Rate [Right Pulse Oximeter] Respiratory Rate Blood Pressure [Right Upper Arm] Pulse Oximetry 96 96 93 Oxygen Delivery Method 09/27/23 02:30 09/27/23 03:31 09/27/23 03:35 Temperature Pulse Rate [Right Pulse Oximeter] 61 60 Respiratory Rate 16 18 Blood Pressure [Right Upper Arm] 138/70 Pulse Oximetry 97 95 97 Oxygen Delivery Method Room Air Documenting provider has reviewed patient's vital signs: yes Hospitalist - H&P: Result Labs Labs: Short CBC 09/27/23 Range/Units 00:49 WBC 7.21 (4.50-11.00) K/uL Hgb 11.1 L (12.0-16.0) gm/dL Hct 35.2 (33.0-51.0) % Plt Count 142 (140-440) K/uL BMP 09/27/23 00:49 Sodium 140 Potassium 3.9 Chloride 107 Carbon Dioxide 27 BUN 20 Creatinine 1.0 Glucose 133 H Calcium 9.5 Cardiac Enzymes 09/27/23 Range/Units 00:48 Total Creatine Kinase 38 L (41-117) U/L Imaging Venous US: Radiologist's impression: FINDINGS/IMPRESSION: In the region labeled left upper arm area of swelling, there is a 6.0 x 2.6 x 2.4 cm heterogeneous hypoechoic structure approximately 1.4 cm from the anterior skin surface, with no internal vascularity. Appearance is indeterminate however if there is history of trauma, this may reflect a large hematoma. Assessment and Plan Assessment and plan (1) Hematoma: Status: Acute Plan Assessment: 1. Fall with resulting left arm pain 2. Upper arm hematoma resulting in #1 above 3. History of paroxysmal atrial fibrillation as well as peripheral vascular disease currently with anticoagulation medications including Eliquis, Plavix and aspirin contributing to #2 above 4. Diabetes mellitus type 2 5. Chronic kidney disease stage III 6. Chronic low back pain 7. Minor anemia likely from #2 above 8. [employer] Plan: At this time Marah has been admitted to the medical service under The recommendations from vascular surgery. They have suggested to that Marah received serial ultrasounds to make sure that the hematoma is not enlarging with her current triple anticoagulation of Plavix, aspirin and Eliquis. I did explain to Marah that the relation of the size of the hematoma and the actual size of the compartment is what we will determine if Marah is getting signs and or symptoms of compartment syndrome. I did tell Marah that she would need to let us know if she is having any increasing pain or the inability to utilize her arm function such as straightening out her arm and moving her arm without significant pain. I will also order serial CPKs to make sure that we are not having any significant muscle breakdown. At this time I will obviously hold her anticoagulation and will continue to monitor the pain/function of her biceps area. I will ask pharmacy to reconcile her home medications and will reorder these as needed. I will order some correction scale insulin for her diabetes. I have explained this plan to Marah and she is agreeable to proceed. Again, if Marah starts showing any signs or symptoms of compartment syndrome, she will need to be seen immediately by either vascular surgery or general surgery for further evaluation and treatment. Will continue to follow closely from medical standpoint. I did discuss CODE STATUS with Marah and she does wish to be a full code. I will order this per her wishes. Telehealth: Statement Statement Telehealth Visit: Today's History and Physical is provided via interactive telehealth by Bertram Mitchell MD.? Patient is located at [facility] Provider is located at [facility].? Nursing staff assisted with the patient's exam. The visit being done today meets criteria for a telehealth visit and the patient or patient?s parent/guardian is aware the visit is a telehealth visit. Camera Start Time: 04:12 Camera End Time: 04:44
--- NOTE | 2023-09-27 07:54 | PC.NURSE ---
end of shift note: pt pleasant and cooperative with cares. rates pain 8/10 to left arm. hematoma to left upper arm, wrapped for comfort. pt did not receive any pain meds since arrival on unit. pt a&o x4. unsteady gait; pt reports using furniture to help with balance at home. pt uses scooter when out of the home. pt is jackson. bilateral bruises scattered around body (see initial physical assessment comment). vitally stable on RA.
[2023-09-27 08:14] LABS: Hemoglobin* 11.5 gm/dL (12.0-16.0)
[2023-09-27] MEDS: METOPROLOL SUCCINATE (XL) 50 MG TAB PO (09:34)
[2023-09-27] MEDS: EMPAGLIFLOZIN 10 MG TABLET 25 MG PO (09:35)
[2023-09-27] MEDS: VENLAFAXINE ER 75 MG CAPSULE 150 MG PO (09:40)
[2023-09-27] MEDS: SODIUM CHLORIDE 0.9 % (FLUSH) 10 ML SYRINGE 5 ML IVF (09:41)
[2023-09-27 11:04] LABS: Creatine Kinase* 39 U/L (41-117)
--- NOTE | 2023-09-27 11:11 | PM.DS1 ---
DS: Providers Provider Date Seen: 09/27/23 Date of admission: 09/27/23 03:41 Primary care physician: Abby Reveles PA-C Admitting Clinician: Bertram Mitchell MD Consults: 09/27/23 04:54 Consult to Physical Therapy [CONS] Routine Comment: Reason(s) for PT Consult:: Evaluate and Treat Any Restrictions?:: See Comment Comment: Wt. restriction to L arm lifting 09/27/23 04:57 Consult to Occupational Therapy [CONS] Routine Comment: Reason(s) for OT Consult:: Evaluate and Treat Any Restrictions?:: See Comment Comment: wt. restriction to L Arm 09/27/23 06:13 Consult to Physical Therapy [CONS] Routine Comment: Reason(s) for PT Consult:: Recent Falls Any Restrictions?:: No Restrictions Attending Physician on discharge: Ines Maurice MD [facility] Date of Discharge: 09/27/23 DS: Diagnosis Discharge Diagnosis (1) Hematoma: Status: Acute Problem details: hgb stable. clinically stable. OT recommended as an outpatient. Hold eliquis until 09/30/23 then resume. DS: Summary Hospital Course Hospital Course: FINAL DIAGNOSIS/FOLLOW UP ISSUES: 1. Hematoma after a fall at home; on eliquis, bicep hematoma (closed) BRIEF HOSPITAL COURSE: Patient was admitted for overnight. Synopsis of acute inpatient issues are outlined above. Chronic medical conditions with notable findings outlined above. DISCHARGE MEDICATIONS: See Reconciled list - SIGNIFICANT CHANGES: Hold Eliquis until 09/30/2023. Specific instructions to the patient and follow-up are outlined below. REVIEW OF SYSTEMS No new chest pain or dyspnea Pain controlled No voiding difficulties Tolerating diet challenge PHYSICAL EXAM: CONSTITUTIONAL: alert, asking appropriate questions. working with therapists. VITAL SIGNS: see record. HEENT: Normocephalic, atraumatic. PERRL, EOMI, conjunctivae pink, no scleral icterus. Ears and nose externally normal. Pharynx normal. NECK: No JVD. No carotid bruit, no thyromegaly, no adenopathy. CHEST: Clear to auscultation bilaterally. HEART: S1 and S2 normal. Edema ABDOMEN: Soft, nontender. Normal bowel sounds. MUSCULOSKELETAL: No gross joint deformity or swelling. NEURO: Cranial nerves intact. Grossly intact. No asymmetric findings. SKIN: No rashes, petechiae, concerning changes PSYCHIATRIC: Mood euthymic. DISPOSITION: home with Time spent on discharge 37 minutes. Status at Discharge Functional status at discharge: independent ambulation Overall status at discharge: patient is progressing back to baseline Time Spent with Patient Time attestation: Total time spent providing and/or coordinating discharge services: Time spent: Greater than 30 minutes Exam Const: Vital Signs, click to edit/add: Vital Signs - 24 hr 09/27/23 00:14 09/27/23 00:16 09/27/23 00:17 Temperature 98.1 F Pulse Rate [Pulse Oximeter] Pulse Rate [Right Pulse Oximeter] 58 L Respiratory Rate 18 Blood Pressure [Ri ght Arm] Blood Pressure [Ri ght Upper Arm] 191/86 H Pulse Oximetry 99 98 98 Oxygen Delivery Me thod Room Air 09/27/23 00:30 09/27/23 00:47 09/27/23 00:48 Temperature 98.1 F Pulse Rate [Pulse Oximeter] Pulse Rate [Right Pulse Oximeter] Respiratory Rate Blood Pressure [Ri ght Arm] Blood Pressure [Ri ght Upper Arm] Pulse Oximetry 98 97 Oxygen Delivery Me thod 09/27/23 01:16 09/27/23 01:30 09/27/23 02:00 Temperature Pulse Rate [Pulse Oximeter] Pulse Rate [Right Pulse Oximeter] Respiratory Rate Blood Pressure [Ri ght Arm] Blood Pressure [Ri ght Upper Arm] Pulse Oximetry 96 96 93 Oxygen Delivery Ks thod 09/27/23 02:30 09/27/23 03:31 09/27/23 03:35 Temperature Pulse Rate [Pulse Oximeter] Pulse Rate [Right Pulse Oximeter] 61 60 Respiratory Rate 16 18 Blood Pressure [Ri ght Arm] Blood Pressure [Ri ght Upper Arm] 138/70 Pulse Oximetry 97 95 97 Oxygen Delivery Ks thod Room Air 09/27/23 05:37 09/27/23 05:37 09/27/23 07:00 Temperature 97.0 F L 97.7 F Pulse Rate [Pulse Oximeter] 54 L 69 Pulse Rate [Right Pulse Oximeter] Respiratory Rate 18 16 Blood Pressure [Ri ght Arm] 170/85 H 154/90 H Blood Pressure [Ri ght Upper Arm] Pulse Oximetry 99 99 98 Oxygen Delivery Me thod Room Air Room Air Room Air DS: Data Data Completed and Pending Labs on day of discharge: Labs from last 24 hours 09/27/23 09/27/23 09/27/23 08:00 03:01 00:49 WBC 7.21 RBC 3.53 L Hgb 11.5 L 11.1 L Hct 35.2 MCV 100 MCH 31 MCHC 32 RDW Coeff of Felix 13.8 Plt Count 142 Neut % (Auto) 66.9 Lymph % (Auto) 21.8 [place] % (Auto) 7.5 Eos % (Auto) 2.4 Baso % (Auto) 0.4 Neut # (Auto) 4.83 Lymph # (Auto) 1.57 [place] # (Auto) 0.50 Eos # (Auto) 0.17 Baso # (Auto) 0.03 Abs Immat Gran (auto) 0.07 Imm/Tot Granulo (auto) 1.0 Sodium 140 Potassium 3.9 Chloride 107 Carbon Dioxide 27 Anion Gap 6 L BUN 20 Creatinine 1.0 Estimated Creat Clear 34.42 Estimated GFR 57 Glucose 133 H Calcium 9.5 Total Creatine Kinase 39 L Lab Acknowledgement Test Added POC Creatinine 09/27/23 00:48 WBC RBC Hgb Hct MCV MCH MCHC RDW Coeff of Felix Plt Count Neut % (Auto) Lymph % (Auto) [place] % (Auto) Eos % (Auto) Baso % (Auto) Neut # (Auto) Lymph # (Auto) [place] # (Auto) Eos # (Auto) Baso # (Auto) Abs Immat Gran (auto) Imm/Tot Granulo (auto) Sodium Potassium Chloride Carbon Dioxide Anion Gap BUN Creatinine Estimated Creat Clear Estimated GFR Glucose Calcium Total Creatine Kinase 38 L Lab Acknowledgement POC Creatinine 1.2 Discharge Plan Discharge Disposition: Home w/ Parent or Adult Date of Admission: 09/27/23 03:41 Attending Provider on Discharge: Ines Maurice Primary Care Provider: Abby Reveles Anticipated Discharge Date/Time: 09/27/23 11:30 Discharge Medications: Continued venlafaxine 150 mg capsule,extended release 24hr 150 mg PO DAILY nitroglycerin 0.4 mg tablet, sublingual 0.4 mg sublingual Q5M PRN Patient Comments: PLACE 1 TABLET UNDER TONGUE EVERY 5 MINUTES NEEDED FOR CHEST PAIN losartan 100 mg tablet 100 mg PO DAILY rosuvastatin 20 mg tablet 20 mg PO HS Jardiance 25 mg tablet 25 mg PO DAILY acetaminophen [Arthritis Pain Reliever] 650 mg tablet extended release 650 mg PO Q8H PRN cyanocobalamin (vitamin B-12) 1,000 mcg/mL solution 1,000 mcg IM .MONTHLY furosemide 40 mg tablet 40 mg PO MOWEFR Rx Instructions: REPORTS TAKING THREE TIMES A WEEK, ON SUNDAY, SUNDAY AND SUNDAY cholecalciferol (vitamin D3) 25 mcg (1,000 unit) capsule 50 mcg PO DAILY clopidogrel 75 mg tablet 75 mg PO DAILY omeprazole 40 mg capsule,delayed release(DR/EC) 40 mg PO HS pyridoxine (vitamin B6) [Vitamin B-6] 50 mg tablet 50 mg PO DAILY carvedilol 25 mg tablet 25 mg PO BID isosorbide mononitrate 30 mg tablet extended release 24 hr 30 mg PO DAILY Mounjaro 15 mg/0.5 mL pen injector 15 mg subcut QWEEK Held Eliquis 5 mg tablet 5 mg PO BID Hold Instructions: Resume on 09/30/23. restart Eliquis Sunday; 09/29 Discharge Orders: Discharge Order (Routine); Ordered 09/27/23 Ordered By: Ines Maurice Patient Education: Hematoma (ED) Additional Instructions: Keep bicep (upper arm) wrapped snuggly with aminata wrap; not so tight it is throbbing or painful. It is expected that this will be uncomfortable, however. I would like you to wrap this for about 8 hours, then take 1 hour off and allow to rest unwrapped on a pillow. Then wrap again for 8, off for an hour, etc. I will order an OT (occupational therapy) evaluation at the clinic to assess how the arm is healing. Activity Level: Activity as Tolerated Discharge Diet: Regular Follow Up Appointments: [facility] [place] [Provider Group] (1-2 weeks to assess left arm motion/function) Abby Reveles PA-C [Primary Care Provider] - 10/02/23 9:00 am ([facility] for follow-up post hospital ) Forms: [facility] Info Instructions
== END 2023-09-27 12:23 | disposition home or self-care (01) ==
LOC: ED 03:09 → MEDSURG 03:41
PROVIDERS: Family Medicine; Admitting Provider Internal Medicine; Emergency Provider Family Medicine; PCP Internal Medicine; Visit Provider Internal Medicine
DX: S40.022D Contusion of left upper arm, subsequent encounter (principal); R58 Hemorrhage, not elsewhere classified; M79.602 Pain in left arm; S80.02XA Contusion of left knee, initial encounter; S30.0XXA Contusion of lower back and pelvis, initial encounter; D64.9 Anemia, unspecified; W19.XXXA Unspecified fall, initial encounter; I73.9 Peripheral vascular disease, unspecified; I25.10 Atherosclerotic heart disease of native coronary artery without angina pectoris; E11.22 Type 2 diabetes mellitus with diabetic chronic kidney disease; N18.30 Chronic kidney disease, stage 3 unspecified; I12.9 Hypertensive chronic kidney disease with stage 1 through stage 4 chronic kidney disease, or unspecified chronic kidney disease; F41.9 Anxiety disorder, unspecified; G89.29 Other chronic pain; M54.50 Low back pain, unspecified; K21.9 Gastro-esophageal reflux disease without esophagitis; Z79.82 Long term (current) use of aspirin; Z79.01 Long term (current) use of anticoagulants; Z86.79 Personal history of other diseases of the circulatory system; Z87.19 Personal history of other diseases of the digestive system; Z95.1 Presence of aortocoronary bypass graft; Z98.890 Other specified postprocedural states; Z78.9 Other specified health status
CPT/HCPCS: 36415; 73080; 73201; 80048; 82550; 82565; 82962; 85018; 85025; 94761; 97110; 97116; 97162; 97165; 99284; 99285; A9270; G0378; Q9967

== ENCOUNTER 2024-09-18 13:05 | Outpatient (CLI) | payer MEDICARE, OTHER, SELFPAY | END 2024-09-18 13:06 | disposition home or self-care (01) | LOC: NFLDREF 09-24 12:30 | PROVIDERS: PCP Internal Medicine; Referring Provider Internal Medicine; Visit Provider Physician Assistant Surgical | DX: N30.01 Acute cystitis with hematuria (principal); B96.20 Unspecified Escherichia coli [E. coli] as the cause of diseases classified elsewhere | CPT/HCPCS: 87086 ==